=== PATIENT | male | born 1955 | race African-American/Black ===

== ENCOUNTER 2019-07-29 00:56 | Inpatient (IN) | payer SELFPAY ==
[~2019-07-29] VITALS: Ht 177.8 cm; Wt 112.7 kg
[2019-07-29] VITALS (9 sets, daily range): BP systolic 130–204; BP diastolic 87–119
--- NOTE | 2019-07-29 01:04 | Emergency Room Report ---
History of Present Illness General Chief Complaint: Dizziness Source: Patient Present Illness HPI This is a 63-year-old male with history of high blood pressure and CAD with 2 stents. He presents with chief complaint of dizziness and high blood pressure. He has been off of his medication since March when he was laid off of his job. He lost his insurance so has not seen a doctor since then. He presents with chief complaint of headache and dizziness. He said he felt off balance. Said that his blood pressure was elevated. He called 911 tonight. He denies any focal deficit. No slurred speech. No chest pain. No shortness of breath. Nothing made it better. Nothing made it worse. He took aspirin yesterday. He said symptoms been ongoing for the last 2 days. Allergies: Coded Allergies: No Known Allergies (Unverified , 07/29/19) COVID-19 Screening Contact w/high risk pt: No Recent Travel to affected area: No Experienced COVID-19 symptoms?: No Patient History Past Medical History: see triage record, old chart reviewed, HTN, CAD Past Surgical History: other Pertinent Family History: none Social History: Denies: smoking Immunizations: other Reviewed Nursing Documentation: PMH: Agreed; PSxH: Agreed Nursing Documentation-PMH Hx Cardiac Problems: Yes - stent Hx Hypertension: Yes Review of Systems Eye: Denies: eye pain, blurred vision ENT: Denies: ear pain, nose congestion, throat swelling Respiratory: Denies: cough, shortness of breath Cardiovascular: Denies: chest pain, palpitations Gastrointestinal: Denies: abdominal pain, diarrhea, nausea, vomiting Musculoskeletal: Denies: back pain, joint pain Skin: Denies: rash Neurological: Reports: dizziness; Denies: headache, numbness Endocrine: Denies: increased thirst, increased urine Hematologic/Lymphatic: Denies: easy bruising All Other Systems: negative except mentioned in HPI Physical Exam Vital Signs Date Time Temp Pulse Resp B/P (MAP) Pulse Ox O2 Delivery O2 Flow Rate FiO2 07/29/19 00:44 99.0 93 16 218/126 (156) 100 Room Air Vitals with high blood pressure Sp02 EP Interpretation: reviewed, normal General Appearance: well appearing, no apparent distress, alert Head: normocephalic, atraumatic Eyes: bilateral eye PERRL, bilateral eye EOMI ENT: hearing grossly normal, normal pharynx Neck: full range of motion, supple, no meningismus Respiratory: chest non-tender, lungs clear, normal breath sounds Cardiovascular #1: regular rate, rhythm, no murmur Gastrointestinal: normal bowel sounds, non tender, no mass, no organomegaly, no bruit, non-distended Musculoskeletal: back normal, normal range of motion, gait/station normal Psychiatric: mood/affect normal Medical Decision Making Diagnostic Impression: Primary Impression: Hypertensive encephalopathy Additional Impressions: CKD (chronic kidney disease) Qualified Codes: N18.9 - Chronic kidney disease, unspecified ACS (acute coronary syndrome) ER Course This patient presents with dizziness and blood pressure was very high. CT scan is negative for any acute bleed or CVA. Aspirin given here. Blood pressure slowly reduced. Troponin is intermediate. Aspirin given. No evidence of PE, dissection, CHF. I discussed the case with Dr. Quinn who will admit for Dr. Saurav garcia. EKG Diagnostic Results Rate: normal Rhythm: NSR ST Segments: other - LVH with NSST changes Rhythm Strip Diag. Results EP Interpretation: yes Rate: 82 Rhythm: NSR, no PVC's, no ectopy Chest X-Ray Diagnostic Results Chest X-Ray Diagnostic Results : Chest X-Ray Ordered: Yes # of Views/Limited/Complete: 1 View Indication: Chest Pain EP Interpretation: Yes Interpretation: no consolidation, no effusion, no pneumothorax, other - Cardiomegaly Impression: No acute disease Electronically Signed by: Robert Borden MD CT/MRI/US Diagnostic Results CT/MRI/US Diagnostic Results : Imaging Test Ordered: CT head Impression Negative per radiologist Last Vital Signs Date Time Temp Pulse Resp B/P (MAP) Pulse Ox O2 Delivery O2 Flow Rate FiO2 07/29/19 00:44 99.0 93 16 218/126 (156) 100 Room Air Status: improved Disposition: ADMITTED INPATIENT Condition: Serious Robert Borden MD Jul 29, 2019 01:04
[2019-07-29 01:21] LABS: BASOPHILS % (AUTO) 2.4 % (0.0-2.0); EOSINOPHILS % (AUTO) 2.2 % (0.0-3.0); HEMATOCRIT 46.8 % (42.0-52.0); HEMOGLOBIN 16.5 G/DL (14.2-18.0); LYMPHOCYTES % (AUTO) 32.9 % (20.0-45.0); MEAN CORPUSCULAR VOLUME 86 FL (80-99); MONOCYTES % (AUTO) 9.2 % (1.0-10.0); NEUTROPHILS % (AUTO) 53.3 % (45.0-75.0); PLATELET COUNT 275 K/UL (150-450); RED BLOOD COUNT 5.42 M/UL (4.70-6.10); RED CELL DISTRIBUTION WIDTH 11.7 % (11.6-14.8); WHITE BLOOD COUNT 6.5 K/UL (4.8-10.8)
[2019-07-29 01:34] LABS: ANION GAP 12 mmol/L (5-15); BLOOD UREA NITROGEN 19 mg/dL (7-18); CALCIUM 8.9 MG/DL (8.5-10.1); CARBON DIOXIDE 24 MMOL/L (21-32); CHLORIDE 107 MMOL/L (98-107); CREATININE 1.4 MG/DL (0.55-1.30); POTASSIUM 3.6 MMOL/L (3.5-5.1); SODIUM 143 MMOL/L (136-145)
[2019-07-29 01:57] LABS: APPEARANCE,URINE CLEAR; COLOR,URINE PALE YELLOW; PROTEIN,URINE 2+ (NEGATIVE)
[2019-07-29 01:58] LABS: BILIRUBIN, URINE NEGATIVE (NEGATIVE); GLUCOSE, URINE (UA) NEGATIVE (NEGATIVE); KETONES,URINE NEGATIVE (NEGATIVE); LEUKOCYTE ESTERASE ,URINE NEGATIVE (NEGATIVE); NITRITE,URINE NEGATIVE (NEGATIVE); UROBILINOGEN,URINE NORMAL MG/DL (0.0-1.0)
--- NOTE | 2019-07-29 02:10 | Diagnostic Imaging Report ---
EXAM: CT Head Without Intravenous Contrast CLINICAL HISTORY: DIZZY TECHNIQUE: Axial computed tomography images of the head/brain without intravenous contrast. CTDI is 53 mGy and DLP is 1179 mGy-cm. One or more of the following dose reduction techniques were used: automated exposure control, adjustment of the mA and/or kV according to patient size, use of iterative reconstruction technique. COMPARISON: No relevant prior studies available. FINDINGS: Brain: There is chronic small vessel ischemic disease. No hemorrhage. Ventricles: Unremarkable. No ventriculomegaly. Bones/joints: Unremarkable. No acute fracture. Soft tissues: Unremarkable. Sinuses: Unremarkable as visualized. No acute sinusitis. Mastoid air cells: Unremarkable as visualized. No mastoid effusion. IMPRESSION: No acute intracranial pathology.
--- NOTE | 2019-07-29 02:21 | Diagnostic Imaging Report ---
EXAM: XR Chest, 1 View CLINICAL HISTORY: CP TECHNIQUE: Frontal view of the chest. COMPARISON: No relevant prior studies available. FINDINGS: Lungs: Unremarkable. No consolidation. Pleural space: Unremarkable. No pneumothorax. Heart: Heart size is prominent. Mediastinum: Unremarkable. Bones/joints: Unremarkable. IMPRESSION: No radiographic evidence of acute cardiopulmonary disease.
[2019-07-29] MEDS ORDERED: Acetaminophen 650 MG SUPP RECTAL PRN (02:45)
[2019-07-29] MEDS ORDERED: DiphenhydrAMINE 25mg Tab ORAL PRN (02:45)
--- NOTE | 2019-07-29 03:06 | History and Physical ---
History of Present Illness General Date patient seen: Jul 29, 2019 Reason for Hospitalization: DizzinessHypertensive urgency Present Illness HPI Mr. Garcia is a 63 YO gentleman with essential HTN, HLD, CAD x /p 2 stents (2019), obesity presenting with dizziness. Patient mentions that at approximately 12:00 A.M while laying supine on his bed, he felt sudden onset of chest tightness and dizziness. As his symptoms did not subside, he called the paramedics. He denies any syncopal event, SOB, nausea, vomiting, or diaphoresis. Patient mentions that since March 2019, after getting laid off from his job, he has not been able to afford his home mediations and therefore has not been taking any of his home medications. He does not recall the name of his home medications. On arrival to the ED, patient's vitals were significant for BP: 204/119. The BMP showed Cr-: 1.4 and UA positive for 2+ proteinuria. The CTH and CXR were unrevealing. Patient is being admitted for further observation and medical management. Allergies: Coded Allergies: No Known Allergies (Unverified , 07/29/19) COVID-19 Screening Contact w/high risk pt: No Recent Travel to affected area: No Experienced COVID-19 symptoms?: No Patient History Healthcare decision maker Resuscitation status Advanced Directive on File Review of Systems Constitutional: Reports: no symptoms Eye: Reports: no symptoms, other - dizziness ENT: Reports: no symptoms Respiratory: Reports: other - chest tightness Cardiovascular: Reports: no symptoms, see HPI, chest pain, edema, palpitations , syncope, PND, other Gastrointestinal: Reports: no symptoms, see HPI, abdominal pain, constipation, diarrhea, nausea, vomiting, melena, hematemesis, other Genitourinary: Reports: no symptoms, see HPI, discharge, dysuria, frequency, hematuria, pain, retention, incontinence, urgency, vag bleed/dc, other Musculoskeletal: Reports: no symptoms, see HPI, back pain, gout, joint pain, joint swelling, muscle pain, muscle stiffness, other Skin: Reports: no symptoms, see HPI, rash, change in color, change in hair/ nails, dryness, lesions, other Psychiatric: Reports: no symptoms, see HPI, prior hx, anxiety, depressed feelings, emotional problems, SI, HI, hallucinations, other Neurological: Reports: no symptoms, see HPI, headache, numbness, paresthesia, seizure, tingling, tremors, focal weakness, syncope, dizziness, other Endocrine: Reports: no symptoms, see HPI, excessive sweating, flushing, intolerance to temperature, increased thirst, increased urine, unexplained weight loss, other Hematologic/Lymphatic: Reports: no symptoms, see HPI, anemia, blood clots, easy bleeding, easy bruising, swollen glands, diathesis, other Physical Exam General Appearance: obese Lines, tubes and drains: peripheral HEENT: normocephalic, atraumatic, anicteric Neck: non-tender, normal inspection, abnormal alignment Respiratory/Chest: lungs clear, normal breath sounds, no respiratory distress, no accessory muscle use Cardiovascular/Chest: normal peripheral pulses, normal rate, regular rhythm, regularly irregular, no gallop/murmur, no JVD Abdomen: non tender, soft, no organomegaly, no mass Extremities: normal range of motion Skin Exam: normal pigmentation 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 Last 24 Hour Vital Signs Date Time Temp Pulse Resp B/P (MAP) Pulse Ox O2 Delivery O2 Flow Rate FiO2 07/29/19 02:40 113 16 176/87 99 Room Air 07/29/19 02:09 198/112 07/29/19 02:08 89 198/112 07/29/19 02:00 91 16 198/112 98 Room Air 98 07/29/19 01:08 205/144 07/29/19 01:00 91 16 Room Air 98 07/29/19 00:58 98.9 91 16 204/119 98 Room Air 07/29/19 00:44 99.0 93 16 218/126 (156) 100 Room Air Laboratory Tests Test 07/29/19 01:05 White Blood Count 6.5 K/UL (4.8-10.8) Red Blood Count 5.42 M/UL (4.70-6.10) Hemoglobin 16.5 G/DL (14.2-18.0) Hematocrit 46.8 % (42.0-52.0) Mean Corpuscular Volume 86 FL (80-99) Mean Corpuscular Hemoglobin 30.5 PG (27.0-31.0) Mean Corpuscular Hemoglobin Concent 35.3 G/DL (32.0-36.0) Red Cell Distribution Width 11.7 % (11.6-14.8) Platelet Count 275 K/UL (150-450) Mean Platelet Volume 6.9 FL (6.5-10.1) Neutrophils (%) (Auto) 53.3 % (45.0-75.0) Lymphocytes (%) (Auto) 32.9 % (20.0-45.0) Monocytes (%) (Auto) 9.2 % (1.0-10.0) Eosinophils (%) (Auto) 2.2 % (0.0-3.0) Basophils (%) (Auto) 2.4 % (0.0-2.0) H Urine Color Pale yellow Urine Appearance Clear Urine pH 6.0 (4.5-8.0) Urine Specific [place] 1.020 (1.005-1.035) Urine Protein 2+ (NEGATIVE) H Urine Glucose (UA) Negative (NEGATIVE) Urine Ketones Negative (NEGATIVE) Urine Blood 2+ (NEGATIVE) H Urine Nitrite Negative (NEGATIVE) Urine Bilirubin Negative (NEGATIVE) Urine Urobilinogen Normal MG/DL (0.0-1.0) Urine Leukocyte Esterase Negative (NEGATIVE) Urine RBC 0 /HPF (0 - 0) Urine WBC 0 /HPF (0 - 0) Urine Squamous Epithelial Cells Occasional /LPF Urine Transitional Epithelial Cells None /LPF (NONE) Urine Renal Epithelial Cells None /LPF (NONE) Urine Bacteria None /HPF (NONE) Sodium Level 143 MMOL/L (136-145) Potassium Level 3.6 MMOL/L (3.5-5.1) Chloride Level 107 MMOL/L (98-107) Carbon Dioxide Level 24 MMOL/L (21-32) Anion Gap 12 mmol/L (5-15) Blood Urea Nitrogen 19 mg/dL (7-18) H Creatinine 1.4 MG/DL (0.55-1.30) H Estimat Glomerular Filtration Rate 51.5 mL/min (>60) Glucose Level 108 MG/DL (74-106) H Calcium Level 8.9 MG/DL (8.5-10.1) Troponin I 0.136 ng/mL (0.000-0.056) Urine Opiates Screen Negative (NEGATIVE) Urine Barbiturates Screen Negative (NEGATIVE) Phencyclidine (PCP) Screen Negative (NEGATIVE) Urine Amphetamines Screen Negative (NEGATIVE) Urine Benzodiazepines Screen Negative (NEGATIVE) Urine Cocaine Screen Negative (NEGATIVE) Urine Marijuana (THC) Screen Negative (NEGATIVE) Height (Feet): 5 Height (Inches): 10.00 Weight (Pounds): 250 Medications Current Medications Medications (Trade) Dose Ordered Sig/Aaron Route PRN Reason Start Time Stop Time Status Last Admin Dose Admin Acetaminophen (Tylenol) 650 mg Q4H PRN RECTAL Temp >100.5 07/29/19 02:45 08/28/19 02:44 UNV Amlodipine Besylate (Norvasc) 5 mg Q24HRS ONCE ORAL 07/29/19 02:45 07/29/19 02:46 UNV Aspirin (Ecotrin) 81 mg DAILY ORAL 07/29/19 09:00 09/12/19 08:59 UNV Atorvastatin Calcium (Lipitor) 40 mg Q24HRS ONCE ORAL 07/29/19 02:45 07/29/19 02:46 UNV Dextrose (Dextrose 50%) 25 ml Q30M PRN IV Hypoglycemia 07/29/19 02:45 10/27/19 02:44 UNV Dextrose (Dextrose 50%) 50 ml Q30M PRN IV Hypoglycemia 07/29/19 02:45 10/27/19 02:44 UNV Diphenhydramine HCl (Benadryl) 25 mg Q6H PRN ORAL Itching/Pruritis 07/29/19 02:45 08/28/19 02:44 UNV Heparin Sodium (Porcine) (Heparin 5000 units/ml) 5,000 units EVERY 12 HOURS SUBQ 07/29/19 09:00 09/12/19 08:59 UNV Hydrochlorothiazide (Hydrodiuril) 25 mg Q24HRS ONCE ORAL 07/29/19 02:45 07/29/19 02:46 UNV Assessment/Plan Assessment/Plan: 63 YO M with HTN, HLD ,atherosclerotic CAD s/p PCI with 2 stents (2019), CKD, medication non-compliance presenting with lightheadedness. Vitals signs in the ED significant for BP: 204/119 and UA suggestive or proteinuria. Patient is being admitted for further observation and medical management. #Hypertensive Urgency #Medication non-compliance 2// cost #History of primary hypertension -s/p IV hydralazine in the ED with appropriate lowering of the B.P -Continuous cardiac monitoring. -Normal CTH and CXR. -Start Amlodipine 5 MG PO QD. -Start HCTZ 25 MG PO QD. -Goal BP <140/80 mmHg -Continue to monitor renal function while on HCTZ. #HLD #CAD s/p PCI with 2 stents (2018) #Elevated Troponin -Serum Trop: 0.13; Continue to trend -EKG: no signs of acute ischemia -Start Atorvastatin 40 MG PO QD. -Start ASA 81 MG PO QD. -Lipid panel ordered. -Hemoglobin A1c ordered. #Chronic Kidney Disease #Hypertensive nephropathy -Serum Cr-:; baseline unknown. -Continue to monitor. -Consider Nephrology consult. #Medication non-compliance -2/2 to cost. -Patient currently unemployed. - consult prior to discharge to provide outpatient resources. I spent 70 minutes on this patient's case, and >50% was dedicated to counseling and/or care coordination. Zac Quinn M.D. Jul 29, 2019 03:06
[2019-07-29] MEDS: TraZODone 50mg tab ORAL PRN (07:34)
[2019-07-29] MEDS: Flonase Nasal Inhaler 16gm NASAL SCH ×2 (07:34→17:31)
[2019-07-29] MEDS: Aspirin EC 81mg tab ORAL SCH (08:25)
[2019-07-29] MEDS: hydroCHLOROthiazide 25mg cap ORAL SCH (08:25)
[2019-07-29] MEDS: Atorvastatin 20mg tab ORAL SCH (08:25)
[2019-07-29] MEDS: Heparin 5000 units/ml inj SUBQ SCH ×2 (08:28→20:58)
--- NOTE | 2019-07-29 09:28 | Consultation ---
History of Present Illness General Chief Complaint: Dizziness Present Illness HPI Mr. Garcia is a 63 YO gentleman with essential HTN, HLD, CAD x /p 2 stents (2019), obesity presenting with dizziness. Patient mentions that at approximately 12:00 A.M while laying supine on his bed, he felt sudden onset of chest tightness and dizziness. As his symptoms did not subside, he called the paramedics. He denies any syncopal event, SOB, nausea, vomiting, or diaphoresis. Patient mentions that since March 2019, after getting laid off from his job, he has not been able to afford his home mediations and therefore has not been taking any of his home medications. He does not recall the name of his home medications. On arrival to the ED, patient's vitals were significant for BP: 204/119. The BMP showed Cr-: 1.4 and UA positive for 2+ proteinuria. The CTH and CXR were unrevealing. Patient is being admitted for further observation and medical management. Allergies: Coded Allergies: No Known Allergies (Unverified , 07/29/19) Patient History Healthcare decision maker Resuscitation status Full Code Advanced Directive on File Review of Systems All Other Systems: negative except mentioned in HPI Physical Exam General Appearance: WD/WN, no apparent distress Lines, tubes and drains: peripheral HEENT: normocephalic, atraumatic Neck: non-tender Respiratory/Chest: chest wall non-tender, lungs clear, normal breath sounds Abdomen: non tender, soft Neurologic: alert, oriented x 3 Last 24 Hour Vital Signs Date Time Temp Pulse Resp B/P (MAP) Pulse Ox O2 Delivery O2 Flow Rate FiO2 07/29/19 08:00 98.0 99 18 149/95 (113) 98 07/29/19 06:39 Room Air 07/29/19 04:00 97.8 108 18 150/90 (110) 99 07/29/19 04:00 107 07/29/19 03:30 98.7 105 18 153/99 98 Room Air 98 07/29/19 03:26 98.7 105 18 153/99 98 Room Air 98 07/29/19 02:40 113 16 176/87 99 Room Air 07/29/19 02:09 198/112 07/29/19 02:08 89 198/112 07/29/19 02:00 91 16 198/112 98 Room Air 98 07/29/19 01:08 205/144 07/29/19 01:00 91 16 Room Air 98 07/29/19 00:58 98.9 91 16 204/119 98 Room Air 07/29/19 00:44 99.0 93 16 218/126 (156) 100 Room Air Intake and Output 07/28/19 07/29/19 19:00 07:00 Intake Total 200 ml Output Total 300 ml Balance -100 ml Intake Oral 200 ml Output Urine Total 300 ml # Voids 2 Laboratory Tests Test 07/29/19 01:05 White Blood Count 6.5 K/UL (4.8-10.8) Red Blood Count 5.42 M/UL (4.70-6.10) Hemoglobin 16.5 G/DL (14.2-18.0) Hematocrit 46.8 % (42.0-52.0) Mean Corpuscular Volume 86 FL (80-99) Mean Corpuscular Hemoglobin 30.5 PG (27.0-31.0) Mean Corpuscular Hemoglobin Concent 35.3 G/DL (32.0-36.0) Red Cell Distribution Width 11.7 % (11.6-14.8) Platelet Count 275 K/UL (150-450) Mean Platelet Volume 6.9 FL (6.5-10.1) Neutrophils (%) (Auto) 53.3 % (45.0-75.0) Lymphocytes (%) (Auto) 32.9 % (20.0-45.0) Monocytes (%) (Auto) 9.2 % (1.0-10.0) Eosinophils (%) (Auto) 2.2 % (0.0-3.0) Basophils (%) (Auto) 2.4 % (0.0-2.0) H Urine Color Pale yellow Urine Appearance Clear Urine pH 6.0 (4.5-8.0) Urine Specific [place] 1.020 (1.005-1.035) Urine Protein 2+ (NEGATIVE) H Urine Glucose (UA) Negative (NEGATIVE) Urine Ketones Negative (NEGATIVE) Urine Blood 2+ (NEGATIVE) H Urine Nitrite Negative (NEGATIVE) Urine Bilirubin Negative (NEGATIVE) Urine Urobilinogen Normal MG/DL (0.0-1.0) Urine Leukocyte Esterase Negative (NEGATIVE) Urine RBC 0 /HPF (0 - 0) Urine WBC 0 /HPF (0 - 0) Urine Squamous Epithelial Cells Occasional /LPF Urine Transitional Epithelial Cells None /LPF (NONE) Urine Renal Epithelial Cells None /LPF (NONE) Urine Bacteria None /HPF (NONE) Sodium Level 143 MMOL/L (136-145) Potassium Level 3.6 MMOL/L (3.5-5.1) Chloride Level 107 MMOL/L (98-107) Carbon Dioxide Level 24 MMOL/L (21-32) Anion Gap 12 mmol/L (5-15) Blood Urea Nitrogen 19 mg/dL (7-18) H Creatinine 1.4 MG/DL (0.55-1.30) H Estimat Glomerular Filtration Rate 51.5 mL/min (>60) Glucose Level 108 MG/DL (74-106) H Calcium Level 8.9 MG/DL (8.5-10.1) Troponin I 0.136 ng/mL (0.000-0.056) Urine Opiates Screen Negative (NEGATIVE) Urine Barbiturates Screen Negative (NEGATIVE) Phencyclidine (PCP) Screen Negative (NEGATIVE) Urine Amphetamines Screen Negative (NEGATIVE) Urine Benzodiazepines Screen Negative (NEGATIVE) Urine Cocaine Screen Negative (NEGATIVE) Urine Marijuana (THC) Screen Negative (NEGATIVE) Height (Feet): 5 Height (Inches): 10.00 Weight (Pounds): 250 Medications Current Medications Medications (Trade) Dose Ordered Sig/Aaron Route PRN Reason Start Time Stop Time Status Last Admin Dose Admin Acetaminophen (Tylenol) 650 mg Q4H PRN RECTAL Temp >100.5 07/29/19 02:45 08/28/19 02:44 Amlodipine Besylate (Norvasc) 5 mg DAILY ORAL 07/30/19 09:00 08/29/19 08:59 Aspirin (Ecotrin) 81 mg DAILY ORAL 07/29/19 09:00 09/12/19 08:59 07/29/19 08:25 Atorvastatin Calcium (Lipitor) 40 mg DAILY ORAL 07/29/19 09:00 10/27/19 08:59 07/29/19 08:25 Clonidine HCl (Catapres Tab) 0.1 mg Q12H PRN ORAL For High Blood Pressure 07/29/19 04:15 10/27/19 04:14 Dextrose (Dextrose 50%) 25 ml Q30M PRN IV Hypoglycemia 07/29/19 02:45 10/27/19 02:44 Dextrose (Dextrose 50%) 50 ml Q30M PRN IV Hypoglycemia 07/29/19 02:45 10/27/19 02:44 Diphenhydramine HCl (Benadryl) 25 mg Q6H PRN ORAL Itching/Pruritis 07/29/19 02:45 08/28/19 02:44 Fluticasone Propionate (Flonase) 1 spray TWICE A DAY NASAL 07/29/19 05:00 08/28/19 04:59 07/29/19 07:34 Heparin Sodium (Porcine) (Heparin 5000 units/ml) 5,000 units EVERY 12 HOURS SUBQ 07/29/19 09:00 09/12/19 08:59 07/29/19 08:28 Hydrochlorothiazide (Hydrodiuril) 25 mg DAILY ORAL 07/29/19 09:00 08/28/19 08:59 07/29/19 08:25 Trazodone HCl (Desyrel) 50 mg DAILY PRN ORAL Insomnia 07/29/19 06:45 08/28/19 06:44 07/29/19 07:34 Assessment/Plan Diagnosis [place] I: #hypertensive urgency #Elevated trop #proteinuria #poorly controlled HTN #HLD - check UTP/cr - add coreg 6.25mg daily - continue amlodipine 5mg daily - continue hctz 25mg daily - check renal Us with doppler - check kassie:renin ratio - cardiology eval - 2d echo - asa 81 daily - lipitor 40mg daily Nena Celaya M.D. Jul 29, 2019 09:28
--- NOTE | 2019-07-29 20:18 | Consultation ---
History of Present Illness General Date patient seen: Jul 29, 2019 Chief Complaint: Dizziness Reason for Consultation: dizziness Present Illness HPI 63 YO gentleman with essential HTN, HLD, CAD x/p 2 stents (2019 ), obesity presenting with dizziness. Patient mentions that at approximately 12: 00 A.M while laying supine on his bed, he felt sudden onset of chest tightness and dizziness. As his symptoms did not subside, he called the paramedics. He denies any syncopal event, SOB, nausea, vomiting, or diaphoresis. Patient mentions that since March 2019, after getting laid off from his job, he has not been able to afford his home mediations and therefore has not been taking any of his home medications. He does not recall the name of his home medications. On arrival to the ED, patient's vitals were significant for BP: 204/119. The BMP showed Cr-: 1.4 and UA positive for 2+ proteinuria. Allergies: Coded Allergies: No Known Allergies (Unverified , 07/29/19) Medication History Scheduled Amlodipine Besylate (Norvasc), 10 MG ORAL DAILY Aspirin Ec* (Aspirin Ec*), 81 MG ORAL DAILY Atorvastatin Calcium* (Lipitor*), 40 MG ORAL DAILY Hydralazine HCl (Hydralazine HCl), 100 MG ORAL BID Hydrochlorothiazide (Hydrochlorothiazide), 12.5 MG ORAL DAILY Patient History Healthcare decision maker Resuscitation status Full Code Advanced Directive on File Physical Exam General Appearance: alert HEENT: normocephalic Neck: non-tender Respiratory/Chest: chest wall non-tender Cardiovascular/Chest: normal peripheral pulses Abdomen: normal bowel sounds 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 II-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 grossly normal, no motor/sensory deficits Last 24 Hour Vital Signs Date Time Temp Pulse Resp B/P (MAP) Pulse Ox O2 Delivery O2 Flow Rate FiO2 07/29/19 16:00 79 07/29/19 16:00 98.1 89 18 130/88 (102) 100 07/29/19 12:00 98.0 95 18 139/104 (116) 97 07/29/19 12:00 102 07/29/19 09:00 Room Air 07/29/19 08:00 98.0 99 18 149/95 (113) 98 07/29/19 08:00 96 07/29/19 06:39 Room Air 07/29/19 04:00 97.8 108 18 150/90 (110) 99 07/29/19 04:00 107 07/29/19 03:30 98.7 105 18 153/99 98 Room Air 98 07/29/19 03:26 98.7 105 18 153/99 98 Room Air 98 07/29/19 02:40 113 16 176/87 99 Room Air 07/29/19 02:09 198/112 07/29/19 02:08 89 198/112 07/29/19 02:00 91 16 198/112 98 Room Air 98 07/29/19 01:08 205/144 07/29/19 01:00 91 16 Room Air 98 07/29/19 00:58 98.9 91 16 204/119 98 Room Air 07/29/19 00:44 99.0 93 16 218/126 (156) 100 Room Air Intake and Output 07/28/19 07/29/19 19:00 07:00 Intake Total 200 ml Output Total 300 ml Balance -100 ml Intake Oral 200 ml Output Urine Total 300 ml # Voids 2 Laboratory Tests Test 07/29/19 01:05 07/29/19 11:40 White Blood Count 6.5 K/UL (4.8-10.8) Red Blood Count 5.42 M/UL (4.70-6.10) Hemoglobin 16.5 G/DL (14.2-18.0) Hematocrit 46.8 % (42.0-52.0) Mean Corpuscular Volume 86 FL (80-99) Mean Corpuscular Hemoglobin 30.5 PG (27.0-31.0) Mean Corpuscular Hemoglobin Concent 35.3 G/DL (32.0-36.0) Red Cell Distribution Width 11.7 % (11.6-14.8) Platelet Count 275 K/UL (150-450) Mean Platelet Volume 6.9 FL (6.5-10.1) Neutrophils (%) (Auto) 53.3 % (45.0-75.0) Lymphocytes (%) (Auto) 32.9 % (20.0-45.0) Monocytes (%) (Auto) 9.2 % (1.0-10.0) Eosinophils (%) (Auto) 2.2 % (0.0-3.0) Basophils (%) (Auto) 2.4 % (0.0-2.0) H Urine Color Pale yellow Urine Appearance Clear Urine pH 6.0 (4.5-8.0) Urine Specific [place] 1.020 (1.005-1.035) Urine Protein 2+ (NEGATIVE) H Urine Glucose (UA) Negative (NEGATIVE) Urine Ketones Negative (NEGATIVE) Urine Blood 2+ (NEGATIVE) H Urine Nitrite Negative (NEGATIVE) Urine Bilirubin Negative (NEGATIVE) Urine Urobilinogen Normal MG/DL (0.0-1.0) Urine Leukocyte Esterase Negative (NEGATIVE) Urine RBC 0 /HPF (0 - 0) Urine WBC 0 /HPF (0 - 0) Urine Squamous Epithelial Cells Occasional /LPF Urine Transitional Epithelial Cells None /LPF (NONE) Urine Renal Epithelial Cells None /LPF (NONE) Urine Bacteria None /HPF (NONE) Sodium Level 143 MMOL/L (136-145) Potassium Level 3.6 MMOL/L (3.5-5.1) Chloride Level 107 MMOL/L (98-107) Carbon Dioxide Level 24 MMOL/L (21-32) Anion Gap 12 mmol/L (5-15) Blood Urea Nitrogen 19 mg/dL (7-18) H Creatinine 1.4 MG/DL (0.55-1.30) H Estimat Glomerular Filtration Rate 51.5 mL/min (>60) Glucose Level 108 MG/DL (74-106) H Calcium Level 8.9 MG/DL (8.5-10.1) Troponin I 0.136 ng/mL (0.000-0.056) 0.094 ng/mL (0.000-0.056) Urine Opiates Screen Negative (NEGATIVE) Urine Barbiturates Screen Negative (NEGATIVE) Phencyclidine (PCP) Screen Negative (NEGATIVE) Urine Amphetamines Screen Negative (NEGATIVE) Urine Benzodiazepines Screen Negative (NEGATIVE) Urine Cocaine Screen Negative (NEGATIVE) Urine Marijuana (THC) Screen Negative (NEGATIVE) Renin Pending Aldosterone Pending Height (Feet): 5 Height (Inches): 10.00 Weight (Pounds): 250 Medications Current Medications Medications (Trade) Dose Ordered Sig/Aaron Route PRN Reason Start Time Stop Time Status Last Admin Dose Admin Acetaminophen (Tylenol) 650 mg Q4H PRN RECTAL Temp >100.5 07/29/19 02:45 08/28/19 02:44 Amlodipine Besylate (Norvasc) 5 mg DAILY ORAL 07/30/19 09:00 08/29/19 08:59 Aspirin (Ecotrin) 81 mg DAILY ORAL 07/29/19 09:00 09/12/19 08:59 07/29/19 08:25 Atorvastatin Calcium (Lipitor) 40 mg DAILY ORAL 07/29/19 09:00 10/27/19 08:59 07/29/19 08:25 Carvedilol (Coreg) 6.25 mg EVERY 12 HOURS ORAL 07/29/19 21:00 08/28/19 20:59 Clonidine HCl (Catapres Tab) 0.1 mg Q12H PRN ORAL For High Blood Pressure 07/29/19 04:15 10/27/19 04:14 Dextrose (Dextrose 50%) 25 ml Q30M PRN IV Hypoglycemia 07/29/19 02:45 10/27/19 02:44 Dextrose (Dextrose 50%) 50 ml Q30M PRN IV Hypoglycemia 07/29/19 02:45 10/27/19 02:44 Diphenhydramine HCl (Benadryl) 25 mg Q6H PRN ORAL Itching/Pruritis 07/29/19 02:45 08/28/19 02:44 07/29/19 16:46 Fluticasone Propionate (Flonase) 1 spray TWICE A DAY NASAL 07/29/19 05:00 08/28/19 04:59 07/29/19 17:31 Heparin Sodium (Porcine) (Heparin 5000 units/ml) 5,000 units EVERY 12 HOURS SUBQ 07/29/19 09:00 09/12/19 08:59 07/29/19 08:28 Hydrochlorothiazide (Hydrodiuril) 25 mg DAILY ORAL 07/29/19 09:00 08/28/19 08:59 07/29/19 08:25 Trazodone HCl (Desyrel) 50 mg DAILY PRN ORAL Insomnia 07/29/19 06:45 08/28/19 06:44 07/29/19 07:34 Assessment/Plan Problem List: (1) Hypertensive encephalopathy ICD Codes: I67.4 - Hypertensive encephalopathy SNOMED: 35177185 (2) ACS (acute coronary syndrome) ICD Codes: I24.9 - Acute ischemic heart disease, unspecified SNOMED: 701524262 (3) CKD (chronic kidney disease) ICD Codes: N18.9 - Chronic kidney disease, unspecified SNOMED: 674624142 Qualifiers: Qualified Codes: N18.9 - Chronic kidney disease, unspecified Assessment/Plan: dizziness likely 2/2 hypertensive encephalopathy ok to drop bp < 140/90 non focal neuro exam defer mri brain pt ot Liam Castaneda MD Jul 29, 2019 20:18
[2019-07-29] MEDS: Carvedilol 6.25mg Tab ORAL SCH (20:56)
--- NOTE | 2019-07-29 22:31 | Consultation ---
History of Present Illness General Date patient seen: Jul 29, 2019 Time patient seen: 20:14 Chief Complaint: Dizziness Reason for Consultation: dizziness Present Illness HPI Mr. Garcia is a 63 YO gentleman with essential HTN, HLD, CAD x /p 2 stents (2018), obesity presenting with dizziness. Patient mentions that at approximately 12:00 A.M while laying supine on his bed, he felt sudden onset of chest tightness and dizziness. As his symptoms did not subside, he called the paramedics. He denies any syncopal event, SOB, nausea, vomiting, or diaphoresis. Patient mentions that since March 2019, after getting laid off from his job, he has not been able to afford his home mediations and therefore has not been taking any of his home medications. He does not recall the name of his home medications. On arrival to the ED, patient's vitals were significant for BP: 204/119. The BMP showed Cr-: 1.4 and UA positive for 2+ proteinuria. The CTH and CXR were unrevealing. Allergies: Coded Allergies: No Known Allergies (Unverified , 07/29/19) Patient History Healthcare decision maker Resuscitation status Full Code Advanced Directive on File Review of Systems Constitutional: Reports: no symptoms Eye: Reports: no symptoms ENT: Reports: no symptoms Respiratory: Reports: no symptoms Cardiovascular: Reports: chest pain Gastrointestinal: Reports: no symptoms Genitourinary: Reports: no symptoms Musculoskeletal: Reports: no symptoms Skin: Reports: no symptoms Psychiatric: Reports: no symptoms Neurological: Reports: no symptoms Endocrine: Reports: no symptoms Hematologic/Lymphatic: Reports: no symptoms Physical Exam General Appearance: no apparent distress, alert Lines, tubes and drains: peripheral HEENT: normocephalic, atraumatic, anicteric, mucous membranes moist, PERRL, EOMI, pharynx normal, supple, no JVD Neck: non-tender, normal alignment, supple, normal inspection Respiratory/Chest: chest wall non-tender, lungs clear, normal breath sounds Cardiovascular/Chest: normal peripheral pulses, normal rate, regular rhythm, regularly irregular, no gallop/murmur, no JVD Abdomen: normal bowel sounds, non tender, soft, no organomegaly, no mass Extremities: normal range of motion, non-tender, normal inspection, no calf tenderness, normal capillary refill, non-pitting Skin Exam: normal pigmentation, warm/dry, cyanotic 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, no motor/sensory deficits Last 24 Hour Vital Signs Date Time Temp Pulse Resp B/P (MAP) Pulse Ox O2 Delivery O2 Flow Rate FiO2 07/29/19 20:56 82 148/80 07/29/19 16:00 79 07/29/19 16:00 98.1 89 18 130/88 (102) 100 07/29/19 12:00 98.0 95 18 139/104 (116) 97 07/29/19 12:00 102 07/29/19 09:00 Room Air 07/29/19 08:00 98.0 99 18 149/95 (113) 98 07/29/19 08:00 96 07/29/19 06:39 Room Air 07/29/19 04:00 97.8 108 18 150/90 (110) 99 07/29/19 04:00 107 07/29/19 03:30 98.7 105 18 153/99 98 Room Air 98 07/29/19 03:26 98.7 105 18 153/99 98 Room Air 98 07/29/19 02:40 113 16 176/87 99 Room Air 07/29/19 02:09 198/112 07/29/19 02:08 89 198/112 07/29/19 02:00 91 16 198/112 98 Room Air 98 07/29/19 01:08 205/144 07/29/19 01:00 91 16 Room Air 98 07/29/19 00:58 98.9 91 16 204/119 98 Room Air 07/29/19 00:44 99.0 93 16 218/126 (156) 100 Room Air Intake and Output 07/28/19 07/29/19 19:00 07:00 Intake Total 200 ml Output Total 300 ml Balance -100 ml Intake Oral 200 ml Output Urine Total 300 ml # Voids 2 Laboratory Tests Test 07/29/19 01:05 07/29/19 11:40 07/29/19 20:30 White Blood Count 6.5 K/UL (4.8-10.8) Red Blood Count 5.42 M/UL (4.70-6.10) Hemoglobin 16.5 G/DL (14.2-18.0) Hematocrit 46.8 % (42.0-52.0) Mean Corpuscular Volume 86 FL (80-99) Mean Corpuscular Hemoglobin 30.5 PG (27.0-31.0) Mean Corpuscular Hemoglobin Concent 35.3 G/DL (32.0-36.0) Red Cell Distribution Width 11.7 % (11.6-14.8) Platelet Count 275 K/UL (150-450) Mean Platelet Volume 6.9 FL (6.5-10.1) Neutrophils (%) (Auto) 53.3 % (45.0-75.0) Lymphocytes (%) (Auto) 32.9 % (20.0-45.0) Monocytes (%) (Auto) 9.2 % (1.0-10.0) Eosinophils (%) (Auto) 2.2 % (0.0-3.0) Basophils (%) (Auto) 2.4 % (0.0-2.0) H Urine Color Pale yellow Urine Appearance Clear Urine pH 6.0 (4.5-8.0) Urine Specific [place] 1.020 (1.005-1.035) Urine Protein 2+ (NEGATIVE) H Urine Glucose (UA) Negative (NEGATIVE) Urine Ketones Negative (NEGATIVE) Urine Blood 2+ (NEGATIVE) H Urine Nitrite Negative (NEGATIVE) Urine Bilirubin Negative (NEGATIVE) Urine Urobilinogen Normal MG/DL (0.0-1.0) Urine Leukocyte Esterase Negative (NEGATIVE) Urine RBC 0 /HPF (0 - 0) Urine WBC 0 /HPF (0 - 0) Urine Squamous Epithelial Cells Occasional /LPF Urine Transitional Epithelial Cells None /LPF (NONE) Urine Renal Epithelial Cells None /LPF (NONE) Urine Bacteria None /HPF (NONE) Sodium Level 143 MMOL/L (136-145) Potassium Level 3.6 MMOL/L (3.5-5.1) Chloride Level 107 MMOL/L (98-107) Carbon Dioxide Level 24 MMOL/L (21-32) Anion Gap 12 mmol/L (5-15) Blood Urea Nitrogen 19 mg/dL (7-18) H Creatinine 1.4 MG/DL (0.55-1.30) H Estimat Glomerular Filtration Rate 51.5 mL/min (>60) Glucose Level 108 MG/DL (74-106) H Calcium Level 8.9 MG/DL (8.5-10.1) Troponin I 0.136 ng/mL (0.000-0.056) 0.094 ng/mL (0.000-0.056) Urine Opiates Screen Negative (NEGATIVE) Urine Barbiturates Screen Negative (NEGATIVE) Phencyclidine (PCP) Screen Negative (NEGATIVE) Urine Amphetamines Screen Negative (NEGATIVE) Urine Benzodiazepines Screen Negative (NEGATIVE) Urine Cocaine Screen Negative (NEGATIVE) Urine Marijuana (THC) Screen Negative (NEGATIVE) Renin Pending Aldosterone Pending Urine Random Total Protein 10 MG/DL (< 11.9) Urine Creatinine 215.2 MG/DL (30.0-125.0) H Height (Feet): 5 Height (Inches): 10.00 Weight (Pounds): 250 Medications Current Medications Medications (Trade) Dose Ordered Sig/Aaron Route PRN Reason Start Time Stop Time Status Last Admin Dose Admin Acetaminophen (Tylenol) 650 mg Q4H PRN RECTAL Temp >100.5 07/29/19 02:45 08/28/19 02:44 Amlodipine Besylate (Norvasc) 5 mg DAILY ORAL 07/30/19 09:00 08/29/19 08:59 Aspirin (Ecotrin) 81 mg DAILY ORAL 07/29/19 09:00 09/12/19 08:59 07/29/19 08:25 Atorvastatin Calcium (Lipitor) 40 mg DAILY ORAL 07/29/19 09:00 10/27/19 08:59 07/29/19 08:25 Carvedilol (Coreg) 6.25 mg EVERY 12 HOURS ORAL 07/29/19 21:00 08/28/19 20:59 07/29/19 20:56 Clonidine HCl (Catapres Tab) 0.1 mg Q12H PRN ORAL For High Blood Pressure 07/29/19 04:15 10/27/19 04:14 Dextrose (Dextrose 50%) 25 ml Q30M PRN IV Hypoglycemia 07/29/19 02:45 10/27/19 02:44 Dextrose (Dextrose 50%) 50 ml Q30M PRN IV Hypoglycemia 07/29/19 02:45 10/27/19 02:44 Diphenhydramine HCl (Benadryl) 25 mg Q6H PRN ORAL Itching/Pruritis 07/29/19 02:45 08/28/19 02:44 07/29/19 16:46 Fluticasone Propionate (Flonase) 1 spray TWICE A DAY NASAL 07/29/19 05:00 08/28/19 04:59 07/29/19 17:31 Heparin Sodium (Porcine) (Heparin 5000 units/ml) 5,000 units EVERY 12 HOURS SUBQ 07/29/19 09:00 09/12/19 08:59 07/29/19 20:58 Hydrochlorothiazide (Hydrodiuril) 25 mg DAILY ORAL 07/29/19 09:00 08/28/19 08:59 07/29/19 08:25 Trazodone HCl (Desyrel) 50 mg DAILY PRN ORAL Insomnia 07/29/19 06:45 08/28/19 06:44 07/29/19 07:34 Assessment/Plan Status: doing well, stable Assessment/Plan: ASSESSMENT Hypertensive urgency Elevated Troponin Medication non compliance CAD s/p PCI 2019 x2 CKD Chest pain PLAN Trend troponin - now trending and likely from elevated blood pressure Nitro prn chest pain Continue norvasc and HCTZ - monitor renal function Slowly reduce blood pressures DASH diet Hold heparin unless patient has refractory symptoms/EKG changes/rising troponin Continue lipitor No indication for cardiac cath or stress test at this time. Gustabo Ferrari MD Jul 29, 2019 22:31
[2019-07-30] VITALS: BP 145/94
[2019-07-30] MEDS: TraZODone 50mg tab ORAL PRN (00:52)
[2019-07-30 04:00] VITALS: BP 149/90
[2019-07-30 07:30] LABS: BASOPHILS % (AUTO) 1.8 % (0.0-2.0); EOSINOPHILS % (AUTO) 3.4 % (0.0-3.0); HEMATOCRIT 45.6 % (42.0-52.0); HEMOGLOBIN 15.8 G/DL (14.2-18.0); LYMPHOCYTES % (AUTO) 37.4 % (20.0-45.0); MEAN CORPUSCULAR VOLUME 89 FL (80-99); NEUTROPHILS % (AUTO) 47.5 % (45.0-75.0); PLATELET COUNT 277 K/UL (150-450); RED BLOOD COUNT 5.15 M/UL (4.70-6.10); RED CELL DISTRIBUTION WIDTH 12.2 % (11.6-14.8); WHITE BLOOD COUNT 5.2 K/UL (4.8-10.8)
--- NOTE | 2019-07-30 07:49 | General Progress Note ---
Assessment/Plan Status: doing well, stable Assessment/Plan: 63 YO M with HTN, HLD ,atherosclerotic CAD s/p PCI with 2 stents (2019), CKD, medication non-compliance presenting with lightheadedness. Vitals signs in the ED significant for BP: 204/119 and UA suggestive or proteinuria. Patient is being admitted for further observation and medical management. #Hypertensive Urgency #Medication non-compliance 2/2 cost #History of primary hypertension -Cont. in-pt medical care -s/p IV hydralazine in the ED with appropriate lowering of the B.P -Continuous cardiac monitoring. -Normal CT Head and CXR. -cont Amlodipine 5 MG PO QD. -cont HCTZ 25 MG PO QD. -coreg 6.25 mg BID -Goal BP <140/80 mmHg -Continue to monitor renal function while on HCTZ. -cardio consulted, , no indication for stress test at this time #HLD #CAD s/p PCI with 2 stents (2019) #Elevated Troponin #Tachycardia -Serum Trop: 0.13 >> 0.09 -EKG: no signs of acute ischemia -cont Atorvastatin 40 MG PO QD. -cont ASA 81 MG PO QD. -Hemoglobin A1c ordered. -Cardio following, recs appreciated -EP consulted, recs appreciated #ASHISH on ?CKD #Chronic Kidney Disease #Hypertensive nephropathy -Serum Cr-:; baseline unknown. -Continue to monitor. -Nephrology following, recs appreciated -Renal US ordered #Medication non-compliance -2/2 to cost. -Patient currently unemployed. -CM for help with insurance -SW consult prior to d/c for provide outpatient resources. DVT PPx: Heparin Time spent on encounter: 36 mins, >50% on counseling, coordination of care. Additional 30 mins spent on jason review, reivew of H&P, progrss notes, labs and imaging. Time of note doesn't reflect time of encounter. Subjective Allergies: Coded Allergies: No Known Allergies (Unverified , 07/29/19) Subjective F/u for chest pain. Pt noted he felt anxious today, at that time his HR was in 120's. Pt currently denies any CP, SOB, diaphoresis. Objective Last 24 Hour Vital Signs Date Time Temp Pulse Resp B/P (MAP) Pulse Ox O2 Delivery O2 Flow Rate FiO2 07/30/19 04:00 98.1 78 19 149/90 (109) 94 07/30/19 04:00 68 07/30/19 00:00 97.3 76 19 145/94 (111) 93 07/29/19 23:47 76 07/29/19 21:00 Room Air 07/29/19 20:56 82 148/80 07/29/19 20:00 97.8 82 18 142/89 (106) 95 07/29/19 20:00 80 07/29/19 16:00 79 07/29/19 16:00 98.1 89 18 130/88 (102) 100 07/29/19 12:00 98.0 95 18 139/104 (116) 97 07/29/19 12:00 102 07/29/19 09:00 Room Air 07/29/19 08:00 98.0 99 18 149/95 (113) 98 07/29/19 08:00 96 Intake and Output 07/29/19 07/30/19 19:00 07:00 Intake Total 900 ml 400 ml Output Total 600 ml Balance 900 ml -200 ml Intake Oral 900 ml 400 ml Output Urine Total 600 ml # Voids 3 2 Laboratory Tests 07/29/19 11:40: Troponin I 0.094H, Renin [Pending], Aldosterone [Pending] 07/29/19 20:30: Urine Random Total Protein 10, Urine Creatinine 215.2H 07/30/19 06:03: White Blood Count 5.2, Red Blood Count 5.15, Hemoglobin 15.8, Hematocrit 45.6, Mean Corpuscular Volume 89, Mean Corpuscular Hemoglobin 30.7, Mean Corpuscular Hemoglobin Concent 34.6, Red Cell Distribution Width 12.2, Platelet Count 277, Mean Platelet Volume 6.9, Neutrophils (%) (Auto) 47.5, Lymphocytes (%) (Auto) 37.4, Monocytes (%) (Auto) 10.0, Eosinophils (%) (Auto) 3.4H, Basophils (%) ( Auto) 1.8, Sodium Level [Pending], Potassium Level [Pending], Chloride Level [ Pending], Carbon Dioxide Level [Pending], Blood Urea Nitrogen [Pending], Creatinine [Pending], Estimat Glomerular Filtration Rate [Pending], Glucose Level [Pending], Hemoglobin A1c [Pending], Calcium Level [Pending], Phosphorus Level [Pending], Magnesium Level [Pending], Total Bilirubin [Pending], Aspartate Amino Transf (AST/SGOT) [Pending], Alanine Aminotransferase (ALT/SGPT ) [Pending], Alkaline Phosphatase [Pending], Pro-B-Type Natriuretic Peptide [ Pending], Total Protein [Pending], Albumin [Pending], Globulin [Pending], Triglycerides Level [Pending], Cholesterol Level [Pending], LDL Cholesterol [ Pending], HDL Cholesterol [Pending], Cholesterol/HDL Ratio [Pending], Cortisol AM Sample [Pending] Height (Feet): 5 Height (Inches): 10.00 Weight (Pounds): 250 Objective General Appearance: obese, NAD Lines, tubes and drains: peripheral HEENT: NCAT, anicteric, EOMi Respiratory/Chest: lungs clear, normal breath sounds, no respiratory distress, no accessory muscle use Cardiovascular/Chest: normal rate, regular rhythm, no gallop/murmur Abdomen: non tender, soft, no organomegaly, no mass Extremities: normal range of motion Skin Exam: normal pigmentation 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 Jul 30, 2019 07:49
[2019-07-30 07:52] LABS: ALANINE AMINOTRANSFERASE 37 U/L (12-78); ALBUMIN 3.6 G/DL (3.4-5.0); ALBUMIN/GLOBULIN RATIO 1.1 (1.0-2.7); ALKALINE PHOSPHATASE 56 U/L (46-116); ANION GAP 12 mmol/L (5-15); ASPARTATE AMINO TRANSFERASE 19 U/L (15-37); BLOOD UREA NITROGEN 22 mg/dL (7-18); CALCIUM 8.6 MG/DL (8.5-10.1); CARBON DIOXIDE 24 MMOL/L (21-32); CHLORIDE 107 MMOL/L (98-107); CHOLESTEROL 186 MG/DL (< 200); CREATININE 1.6 MG/DL (0.55-1.30); HDL CHOLESTEROL 44 MG/DL (40-60); POTASSIUM 3.6 MMOL/L (3.5-5.1); SODIUM 143 MMOL/L (136-145); TRIGLYCERIDES 103 MG/DL (30-150)
[2019-07-30 07:59] LABS: PHOSPHORUS 4.6 MG/DL (2.5-4.9)
[2019-07-30 08:00] VITALS: BP 165/104
[2019-07-30] MEDS: hydroCHLOROthiazide 25mg cap ORAL SCH (09:06)
[2019-07-30] MEDS: Aspirin EC 81mg tab ORAL SCH (09:06)
[2019-07-30] MEDS: Carvedilol 6.25mg Tab ORAL SCH (09:06)
[2019-07-30] MEDS: Atorvastatin 20mg tab ORAL SCH (09:06)
[2019-07-30] MEDS: Heparin 5000 units/ml inj SUBQ SCH ×2 (09:16→21:03)
[2019-07-30] MEDS: Flonase Nasal Inhaler 16gm NASAL SCH ×2 (09:32→17:45)
--- NOTE | 2019-07-30 12:09 | Nephrology Progress Note ---
Assessment/Plan Plan #hypertensive urgency #Elevated trop #proteinuria #poorly controlled HTN #HLD - check UTP/cr> negative - increase coreg 12.5mg daily - increase amlodipine to 10mg daily - continue hctz 25mg daily - check renal Us with doppler - check kassie:renin ratio - cardiology eval - 2d echo - asa 81 daily - lipitor 40mg daily Subjective ROS Limited/Unobtainable: No Constitutional: Denies: no symptoms, chills, diaphoresis, fever, malaise, weakness, other HEENT: Denies: no symptoms, eye pain, blurred vision, tearing, double vision, ear pain, ear discharge, nose pain, nose congestion, throat pain, throat swelling, mouth pain, mouth swelling, other Genitourinary: Denies: no symptoms, burning, discharge, frequency, flank pain, hematuria, incontinence, pain, urgency, other Neurologic/Psychiatric: Denies: no symptoms, anxiety, depressed, emotional problems, headache, numbness, paresthesia, pre-existing deficit, seizure, tingling, tremors, weakness, other Subjective Bp remains elevated will increase coreg and amlodipine dose Objective Objective Last 24 Hour Vital Signs Date Time Temp Pulse Resp B/P (MAP) Pulse Ox O2 Delivery O2 Flow Rate FiO2 07/30/19 09:30 Room Air 07/30/19 09:07 87 165/104 07/30/19 09:06 87 165/104 07/30/19 08:22 87 07/30/19 08:00 97.9 77 20 165/104 (124) 07/30/19 04:00 98.1 78 19 149/90 (109) 94 07/30/19 04:00 68 07/30/19 00:00 97.3 76 19 145/94 (111) 93 07/29/19 23:47 76 07/29/19 21:00 Room Air 07/29/19 20:56 82 148/80 07/29/19 20:00 97.8 82 18 142/89 (106) 95 07/29/19 20:00 80 07/29/19 16:00 79 07/29/19 16:00 98.1 89 18 130/88 (102) 100 Intake and Output 07/29/19 07/30/19 19:00 07:00 Intake Total 900 ml 400 ml Output Total 600 ml Balance 900 ml -200 ml Intake Oral 900 ml 400 ml Output Urine Total 600 ml # Voids 3 2 Laboratory Tests 07/29/19 20:30: Urine Random Total Protein 10, Urine Creatinine 215.2H 07/30/19 06:03: White Blood Count 5.2, Red Blood Count 5.15, Hemoglobin 15.8, Hematocrit 45.6, Mean Corpuscular Volume 89, Mean Corpuscular Hemoglobin 30.7, Mean Corpuscular Hemoglobin Concent 34.6, Red Cell Distribution Width 12.2, Platelet Count 277, Mean Platelet Volume 6.9, Neutrophils (%) (Auto) 47.5, Lymphocytes (%) (Auto) 37.4, Monocytes (%) (Auto) 10.0, Eosinophils (%) (Auto) 3.4H, Basophils (%) ( Auto) 1.8, Sodium Level 143, Potassium Level 3.6, Chloride Level 107, Carbon Dioxide Level 24, Anion Gap 12, Blood Urea Nitrogen 22H, Creatinine 1.6H, Estimat Glomerular Filtration Rate 53.6, Glucose Level 104, Hemoglobin A1c 5.8, Calcium Level 8.6, Phosphorus Level 4.6, Magnesium Level 2.2, Total Bilirubin 1.0, Aspartate Amino Transf (AST/SGOT) 19, Alanine Aminotransferase (ALT/SGPT) 37, Alkaline Phosphatase 56, Pro-B-Type Natriuretic Peptide 259H, Total Protein 6.9, Albumin 3.6, Globulin 3.3, Albumin/Globulin Ratio 1.1, Triglycerides Level 103, Cholesterol Level 186, LDL Cholesterol 114H, HDL Cholesterol 44, Cholesterol/HDL Ratio 4.2, Cortisol AM Sample [Pending] Height (Feet): 5 Height (Inches): 10.00 Weight (Pounds): 250 Nena Celaya M.D. Jul 30, 2019 12:09
[2019-07-30 12:40] VITALS: BP 175/111
--- NOTE | 2019-07-30 14:45 | Diagnostic Imaging Report ---
Indication: Chronic renal failure, abnormal renal function tests, possible renal vascular hypertension Technique: Grayscale and duplex images of the kidneys, retroperitoneum, and bladder were obtained. Doppler interrogation of the aorta and renal arteries was performed Comparison: none Findings: Right kidney measures 10.4 cm in length. Left kidney measures 10.4 cm in length. Both kidneys demonstrate normal echogenicity. No hydronephrosis. Multiple cysts are seen in the left kidney.. Normal inferior vena cava. Bladder demonstrates posterior wall thickening versus mass versus debris layering dependently. Main renal artery velocities on the right range from 80-33, with normal flow velocities in the intraparenchymal vessels and normal resistive indices. Renal aortic ratio is 1.2. Left renal artery velocities range from 51-58, with normal velocities in the parenchymal vessels. Normal resistive indices. Note that there are 2 renal arteries on the right. Impression: No sonographic evidence of renal artery stenosis Negative for hydronephrosis Posterior wall bladder wall thickening versus mass versus layering of debris. Consider cystoscopy for further evaluation Incidental finding left renal cyst.
--- NOTE | 2019-07-30 15:17 | Cardiac Electrophysiology PN ---
Subjective Subjective [id number] Objective Last 24 Hour Vital Signs Date Time Temp Pulse Resp B/P (MAP) Pulse Ox O2 Delivery O2 Flow Rate FiO2 07/30/19 13:01 175/111 07/30/19 12:41 84 07/30/19 12:40 97.3 84 20 175/111 (132) 94 07/30/19 09:30 Room Air 07/30/19 09:07 87 165/104 07/30/19 09:06 87 165/104 07/30/19 08:22 87 07/30/19 08:00 97.9 77 20 165/104 (124) 07/30/19 04:00 98.1 78 19 149/90 (109) 94 07/30/19 04:00 68 07/30/19 00:00 97.3 76 19 145/94 (111) 93 07/29/19 23:47 76 07/29/19 21:00 Room Air 07/29/19 20:56 82 148/80 07/29/19 20:00 97.8 82 18 142/89 (106) 95 07/29/19 20:00 80 07/29/19 16:00 79 07/29/19 16:00 98.1 89 18 130/88 (102) 100 Intake and Output 07/29/19 07/30/19 19:00 07:00 Intake Total 900 ml 400 ml Output Total 600 ml Balance 900 ml -200 ml Intake Oral 900 ml 400 ml Output Urine Total 600 ml # Voids 3 2 Laboratory Tests Test 07/29/19 20:30 07/30/19 06:03 Urine Random Total Protein 10 MG/DL (< 11.9) Urine Creatinine 215.2 MG/DL (30.0-125.0) H White Blood Count 5.2 K/UL (4.8-10.8) Red Blood Count 5.15 M/UL (4.70-6.10) Hemoglobin 15.8 G/DL (14.2-18.0) Hematocrit 45.6 % (42.0-52.0) Mean Corpuscular Volume 89 FL (80-99) Mean Corpuscular Hemoglobin 30.7 PG (27.0-31.0) Mean Corpuscular Hemoglobin Concent 34.6 G/DL (32.0-36.0) Red Cell Distribution Width 12.2 % (11.6-14.8) Platelet Count 277 K/UL (150-450) Mean Platelet Volume 6.9 FL (6.5-10.1) Neutrophils (%) (Auto) 47.5 % (45.0-75.0) Lymphocytes (%) (Auto) 37.4 % (20.0-45.0) Monocytes (%) (Auto) 10.0 % (1.0-10.0) Eosinophils (%) (Auto) 3.4 % (0.0-3.0) H Basophils (%) (Auto) 1.8 % (0.0-2.0) Sodium Level 143 MMOL/L (136-145) Potassium Level 3.6 MMOL/L (3.5-5.1) Chloride Level 107 MMOL/L (98-107) Carbon Dioxide Level 24 MMOL/L (21-32) Anion Gap 12 mmol/L (5-15) Blood Urea Nitrogen 22 mg/dL (7-18) H Creatinine 1.6 MG/DL (0.55-1.30) H Estimat Glomerular Filtration Rate 53.6 mL/min (>60) Glucose Level 104 MG/DL (74-106) Hemoglobin A1c 5.8 % (4.3-6.0) Calcium Level 8.6 MG/DL (8.5-10.1) Phosphorus Level 4.6 MG/DL (2.5-4.9) Magnesium Level 2.2 MG/DL (1.8-2.4) Total Bilirubin 1.0 MG/DL (0.2-1.0) Aspartate Amino Transf (AST/SGOT) 19 U/L (15-37) Alanine Aminotransferase (ALT/SGPT) 37 U/L (12-78) Alkaline Phosphatase 56 U/L (46-116) Troponin I Pending Pro-B-Type Natriuretic Peptide 259 pg/mL (0-125) H Total Protein 6.9 G/DL (6.4-8.2) Albumin 3.6 G/DL (3.4-5.0) Globulin 3.3 g/dL Albumin/Globulin Ratio 1.1 (1.0-2.7) Triglycerides Level 103 MG/DL (30-150) Cholesterol Level 186 MG/DL (< 200) LDL Cholesterol 114 mg/dL (<100) H HDL Cholesterol 44 MG/DL (40-60) Cholesterol/HDL Ratio 4.2 (3.3-4.4) Cortisol AM Sample Pending Isidro Chisholm MD Jul 30, 2019 15:17
[2019-07-30 16:28] VITALS: BP 151/89
[2019-07-30 20:00] VITALS: BP 149/81
[2019-07-30] MEDS: Carvedilol 25mg Tab ORAL SCH (20:57)
--- NOTE | 2019-07-30 20:57 | Neurology Progress Note ---
Interim History Interim History ROS Limited/Unobtainable: No Interim History denies dizziness, BP stable, seen by cardio Objective Physical Exam Last Vital Signs Date Time Temp Pulse Resp B/P (MAP) Pulse Ox O2 Delivery O2 Flow Rate FiO2 07/30/19 16:29 81 07/30/19 16:28 97.9 20 151/89 (109) 96 07/30/19 09:30 Room Air 07/29/19 03:30 98 Laboratory Tests Test 07/30/19 06:03 White Blood Count 5.2 K/UL (4.8-10.8) Red Blood Count 5.15 M/UL (4.70-6.10) Hemoglobin 15.8 G/DL (14.2-18.0) Hematocrit 45.6 % (42.0-52.0) Mean Corpuscular Volume 89 FL (80-99) Mean Corpuscular Hemoglobin 30.7 PG (27.0-31.0) Mean Corpuscular Hemoglobin Concent 34.6 G/DL (32.0-36.0) Red Cell Distribution Width 12.2 % (11.6-14.8) Platelet Count 277 K/UL (150-450) Mean Platelet Volume 6.9 FL (6.5-10.1) Neutrophils (%) (Auto) 47.5 % (45.0-75.0) Lymphocytes (%) (Auto) 37.4 % (20.0-45.0) Monocytes (%) (Auto) 10.0 % (1.0-10.0) Eosinophils (%) (Auto) 3.4 % (0.0-3.0) H Basophils (%) (Auto) 1.8 % (0.0-2.0) Sodium Level 143 MMOL/L (136-145) Potassium Level 3.6 MMOL/L (3.5-5.1) Chloride Level 107 MMOL/L (98-107) Carbon Dioxide Level 24 MMOL/L (21-32) Anion Gap 12 mmol/L (5-15) Blood Urea Nitrogen 22 mg/dL (7-18) H Creatinine 1.6 MG/DL (0.55-1.30) H Estimat Glomerular Filtration Rate 53.6 mL/min (>60) Glucose Level 104 MG/DL (74-106) Hemoglobin A1c 5.8 % (4.3-6.0) Calcium Level 8.6 MG/DL (8.5-10.1) Phosphorus Level 4.6 MG/DL (2.5-4.9) Magnesium Level 2.2 MG/DL (1.8-2.4) Total Bilirubin 1.0 MG/DL (0.2-1.0) Aspartate Amino Transf (AST/SGOT) 19 U/L (15-37) Alanine Aminotransferase (ALT/SGPT) 37 U/L (12-78) Alkaline Phosphatase 56 U/L (46-116) Troponin I 0.062 ng/mL (0.000-0.056) Pro-B-Type Natriuretic Peptide 259 pg/mL (0-125) H Total Protein 6.9 G/DL (6.4-8.2) Albumin 3.6 G/DL (3.4-5.0) Globulin 3.3 g/dL Albumin/Globulin Ratio 1.1 (1.0-2.7) Triglycerides Level 103 MG/DL (30-150) Cholesterol Level 186 MG/DL (< 200) LDL Cholesterol 114 mg/dL (<100) H HDL Cholesterol 44 MG/DL (40-60) Cholesterol/HDL Ratio 4.2 (3.3-4.4) Cortisol AM Sample 8.3 UG/DL Impression/Recommendations Problems: (1) Hypertensive encephalopathy (2) ACS (acute coronary syndrome) (3) CKD (chronic kidney disease) Status: doing well, stable Liam Castaneda MD Jul 30, 2019 20:57
[2019-07-30] MEDS ORDERED: Carvedilol 12.5mg tab ORAL SCH (21:00)
[2019-07-30] MEDS ORDERED: LORazepam 0.5mg tab ORAL PRN (23:45)
[2019-07-31] VITALS: BP 150/93
--- NOTE | 2019-07-31 00:30 | Consultation ---
DATE OF CONSULTATION: 07/30/2019 CARDIAC ELECTROPHYSIOLOGY CONSULTATION CONSULTING PHYSICIAN: Isidro Chisholm M.D. REFERRING PHYSICIAN: Gia Mg M.D. REASON FOR CONSULTATION: Tachycardia. HISTORY OF PRESENT ILLNESS: The patient is a very pleasant 63-year-old gentleman with history of hypertension and hyperlipidemia as well as coronary artery disease, history of prior stent in 2019 at [facility] as well as chronic kidney disease, who presented to the emergency room for episodes of hypertension. He knows his blood pressure at home was 240s. In the ER, patient's blood pressure was 204/119 and also had proteinuria. The patient had lightheadedness. He stated he stopped taking all of his medication 4 months ago. The patient received IV hydralazine in the emergency room and had a normal CT of the head. The patient was admitted and a Cardiology consultation was obtained for further evaluation as the patient was still tachycardic. His troponin was elevated at 0.136 and 0.094. However, the patient had renal failure. Creatinine was 1.6. REVIEW OF SYSTEMS: Review of systems was negative other than what was mentioned in the history of present illness. PAST MEDICAL HISTORY: As mentioned above. FAMILY HISTORY: Noncontributory. SOCIAL HISTORY: He lives at home. Does not smoke or drink alcohol. Denies using any drugs. PHYSICAL EXAMINATION: VITAL SIGNS: Show blood pressure of 175/111, pulse 84, respirations 18, temperature 97.3. HEAD AND NECK: Showed no JVD. LUNGS: Clear. CARDIOVASCULAR: Shows regular S1 and S2 with no gallop or murmur. ABDOMEN: Soft. EXTREMITIES: No pitting edema. LABORATORY AND DIAGNOSTIC DATA: Labs show sodium 142, potassium 3.6, BUN of 22, creatinine 1.6, glucose of 104. BNP is 259. Troponin is 0.136 and 0.094. His urine tox screen is negative. ASSESSMENT AND PLAN: 1. Tachycardia. This is due to sinus tachycardia with no evidence of atrial fibrillation. I will increase the Coreg to 25 mg b.i.d. We will get an echocardiogram to follow up for ejection fraction and wall motion abnormality as well. 2. Troponin leak, likely due to renal failure. His creatinine is 1.6. The patient also can have demand ischemia as well. Further evaluation by Dr. Ferrari. 3. Accelerated hypertension. Increase the Coreg to 25 b.i.d. Continue Norvasc 10 mg daily and keep him on p.r.n. clonidine. 4. Hyperlipidemia, on Lipitor. Patient is also on hydrochlorothiazide for blood pressure. 5. History of coronary artery disease with prior stent placement. Again, on aspirin and Lipitor and Coreg, under management of Dr. Ferrari. Thank you very much for allowing me to participate in the care of this patient. Please do not hesitate to contact me for any questions regarding my evaluation. Isidro Chisholm M.D. DR: THOMPSON JOB#: [id number] CC:
[2019-07-31] MEDS: TraZODone 50mg tab ORAL PRN ×2 (01:40→22:33)
--- NOTE | 2019-07-31 03:14 | Consultation ---
DATE OF CONSULTATION: 07/29/2019 HISTORY OF PRESENT ILLNESS: The patient is a 63-year-old black male with a history of hypertension, anxiety, obesity, dizziness who has been admitted to the hospital due to dizziness. The patient is presenting with anxiety, insomnia, and fatigue. He is not endorsing any suicidal or homicidal ideation. No depressive symptoms. PAST PSYCHIATRIC HISTORY: He denies any history of psychiatric hospitalization. No suicide attempts. PAST MEDICAL HISTORY: Significant as above. ALLERGIES: No known drug allergies. SUBSTANCE ABUSE HISTORY: No known history of illicit drug use or alcohol. MENTAL STATUS EXAMINATION: The patient is alert and oriented to time, self, place, and situation. Mood is anxious. Affect is flat. Thought process is concrete. Thought content, no suicidal or homicidal ideation. ASSESSMENT: Stable. PLAN: 1. We will continue current medications. 2. Lexapro 10 mg. 3. Trazodone. 4. Ativan p.r.n. Gail Zepeda M.D. DR: Christy JOB#: [id number] CC: KEYANNA
[2019-07-31 04:00] VITALS: BP 144/89
[2019-07-31 06:54] LABS: BASOPHILS % (AUTO) 1.7 % (0.0-2.0); EOSINOPHILS % (AUTO) 4.2 % (0.0-3.0); HEMATOCRIT 44.6 % (42.0-52.0); HEMOGLOBIN 15.4 G/DL (14.2-18.0); LYMPHOCYTES % (AUTO) 41.9 % (20.0-45.0); MEAN CORPUSCULAR VOLUME 88 FL (80-99); MONOCYTES % (AUTO) 9.1 % (1.0-10.0); NEUTROPHILS % (AUTO) 43.1 % (45.0-75.0); PLATELET COUNT 263 K/UL (150-450); RED BLOOD COUNT 5.05 M/UL (4.70-6.10); RED CELL DISTRIBUTION WIDTH 11.9 % (11.6-14.8); WHITE BLOOD COUNT 5.5 K/UL (4.8-10.8)
[2019-07-31 07:36] LABS: ANION GAP 10 mmol/L (5-15); BLOOD UREA NITROGEN 24 mg/dL (7-18); CALCIUM 9.4 MG/DL (8.5-10.1); CARBON DIOXIDE 26 MMOL/L (21-32); CHLORIDE 104 MMOL/L (98-107); CHOLESTEROL 172 MG/DL (< 200); CREATININE 1.6 MG/DL (0.55-1.30); HDL CHOLESTEROL 42 MG/DL (40-60); POTASSIUM 3.7 MMOL/L (3.5-5.1); SODIUM 140 MMOL/L (136-145); TRIGLYCERIDES 92 MG/DL (30-150)
[2019-07-31 08:00] VITALS: BP 162/104
[2019-07-31] MEDS: Heparin 5000 units/ml inj SUBQ SCH ×2 (09:56→20:05)
[2019-07-31] MEDS: hydroCHLOROthiazide 25mg cap ORAL SCH (09:58)
[2019-07-31] MEDS: Flonase Nasal Inhaler 16gm NASAL SCH ×2 (09:58→19:29)
[2019-07-31] MEDS: Carvedilol 25mg Tab ORAL SCH ×2 (09:58→20:06)
[2019-07-31] MEDS: Atorvastatin 20mg tab ORAL SCH (09:58)
[2019-07-31] MEDS: Aspirin EC 81mg tab ORAL SCH (09:59)
--- NOTE | 2019-07-31 10:04 | General Progress Note ---
Assessment/Plan Status: doing well, stable Assessment/Plan: 63 YO M with HTN, HLD ,atherosclerotic CAD s/p PCI with 2 stents (2019), CKD, medication non-compliance presenting with lightheadedness. Vitals signs in the ED significant for BP: 204/119 and UA suggestive or proteinuria. Patient is being admitted for further observation and medical management. #Hypertensive Urgency #Medication non-compliance 2/2 cost #History of primary hypertension -Cont. in-pt medical care -s/p IV hydralazine in the ED with appropriate lowering of the B.P -Continuous cardiac monitoring. -Normal CT Head and CXR. -Goal BP <140/80 mmHg -Amlodipine 10 MG PO QD, HCTZ 25, Coreg 25 BID -add hydralazine -cardio, , no indication for stress test at this time #HLD #CAD s/p PCI with 2 stents (2019) #Elevated Troponin #Tachycardia -Serum Trop: 0.13 >> 0.09 -EKG: no signs of acute ischemia -sinus tach, no evidence of a fib -cont Atorvastatin 40 MG PO QD. -cont ASA 81 MG PO QD. -Cardio following, recs appreciated -EP following: echo results pending #ASHISH on ?CKD #Chronic Kidney Disease #Hypertensive nephropathy -Serum Cr 1.6, baseline unknown. -Continue to monitor. -Renal US reviewed: no renal artery stenosis, no hydronephrosis. posterior wall bladder wall thickening vs mass vs layering of debris -Nephrology following, recs appreciated #Medication non-compliance -2/2 to cost. -Patient currently unemployed. -CM for help with insurance -SW consult prior to d/c for provide outpatient resources. #Abnormal Bladder US -Renal US w/shadowing, ?sediment vs mass -Repeat Renal US -Urology consulted, Dr Champagne, recs appreciated DVT PPx: Heparin Time spent on encounter: 36 mins, >50% on pt counseling, coordination of care w/ RN Additional 30 mins spent with coordination of care, discussed case w/Dr. Champagne , Dr. Chisholm. Time of note doesn't reflect time of encounter. Subjective Allergies: Coded Allergies: No Known Allergies (Unverified , 07/29/19) Subjective F/u for elevated HTN. Pt denies any [place], vision changes, SOB, CP, diaphoresis today. BP remains high. Objective Last 24 Hour Vital Signs Date Time Temp Pulse Resp B/P (MAP) Pulse Ox O2 Delivery O2 Flow Rate FiO2 07/31/19 08:26 Room Air 07/31/19 08:00 98.3 81 20 162/104 (123) 96 07/31/19 04:00 70 07/31/19 04:00 97.7 71 18 144/89 (107) 96 07/31/19 00:00 98.2 84 18 150/93 (112) 97 07/30/19 23:32 65 07/30/19 21:00 Room Air 07/30/19 20:57 81 151/89 07/30/19 20:00 104 07/30/19 20:00 98.2 84 21 149/81 (103) 93 07/30/19 16:29 81 07/30/19 16:28 97.9 81 20 151/89 (109) 96 07/30/19 13:01 175/111 07/30/19 12:41 84 07/30/19 12:40 97.3 84 20 175/111 (132) 94 Intake and Output 07/30/19 07/31/19 19:00 07:00 Intake Total 1080 ml Balance 1080 ml Intake Oral 1080 ml # Voids 2 3 Laboratory Tests 07/31/19 06:01: White Blood Count 5.5, Red Blood Count 5.05, Hemoglobin 15.4, Hematocrit 44.6, Mean Corpuscular Volume 88, Mean Corpuscular Hemoglobin 30.4, Mean Corpuscular Hemoglobin Concent 34.4, Red Cell Distribution Width 11.9, Platelet Count 263, Mean Platelet Volume 7.5, Neutrophils (%) (Auto) 43.1L, Lymphocytes (%) (Auto) 41.9, Monocytes (%) (Auto) 9.1, Eosinophils (%) (Auto) 4.2H, Basophils (%) (Auto ) 1.7, Sodium Level 140, Potassium Level 3.7, Chloride Level 104, Carbon Dioxide Level 26, Anion Gap 10, Blood Urea Nitrogen 24H, Creatinine 1.6H, Estimat Glomerular Filtration Rate 53.6, Glucose Level 100, Calcium Level 9.4, Troponin I 0.046, Pro-B-Type Natriuretic Peptide 136H, Triglycerides Level 92, Cholesterol Level 172, LDL Cholesterol 116H, HDL Cholesterol 42, Cholesterol/ HDL Ratio 4.1, Thyroid Stimulating Hormone (TSH) 1.227 Height (Feet): 5 Height (Inches): 10.00 Weight (Pounds): 250 Objective General Appearance: obese, NAD Lines, tubes and drains: peripheral HEENT: NCAT, anicteric, EOMi Respiratory/Chest: lungs clear, normal breath sounds, no respiratory distress, no accessory muscle use Cardiovascular/Chest: normal rate, regular rhythm, no gallop/murmur Abdomen: non tender, soft, no organomegaly, no mass Extremities: no edema Skin Exam: normal pigmentation MSK: no reproducible pain on anterior wall palpation Swetha Trinh M.D. Jul 31, 2019 10:04
--- NOTE | 2019-07-31 10:56 | Cardiac Electrophysiology PN ---
Assessment/Plan Assessment/Plan 1. Sinus tachycardia with no evidence of atrial fibrillation. On Coreg to 25 mg b.i.d. EF 55% 2. Troponin leak and hx of coronary artery disease with prior stent placement. Likely due to renal failure and demand ischemia. No CP . Fu by Dr. Ferrari. On Aspirin, COreg and Lipitor 3. Accelerated hypertension. Despite Coreg 25 b.i.d. HCTZ 25 and Norvasc 10 mg daily Add Hydralazine 25 bid 4. Hyperlipidemia, on Lipitor. Subjective Subjective BP was still high. No CP or SOB Objective Last 24 Hour Vital Signs Date Time Temp Pulse Resp B/P (MAP) Pulse Ox O2 Delivery O2 Flow Rate FiO2 07/31/19 09:59 81 162/104 07/31/19 09:59 162/104 07/31/19 09:58 81 162/104 07/31/19 08:26 Room Air 07/31/19 08:00 98.3 81 20 162/104 (123) 96 07/31/19 04:00 70 07/31/19 04:00 97.7 71 18 144/89 (107) 96 07/31/19 00:00 98.2 84 18 150/93 (112) 97 07/30/19 23:32 65 07/30/19 21:00 Room Air 07/30/19 20:57 81 151/89 07/30/19 20:00 104 07/30/19 20:00 98.2 84 21 149/81 (103) 93 07/30/19 16:29 81 07/30/19 16:28 97.9 81 20 151/89 (109) 96 07/30/19 13:01 175/111 07/30/19 12:41 84 07/30/19 12:40 97.3 84 20 175/111 (132) 94 Intake and Output 07/30/19 07/31/19 19:00 07:00 Intake Total 1080 ml Balance 1080 ml Intake Oral 1080 ml # Voids 2 3 Laboratory Tests Test 07/31/19 06:01 White Blood Count 5.5 K/UL (4.8-10.8) Red Blood Count 5.05 M/UL (4.70-6.10) Hemoglobin 15.4 G/DL (14.2-18.0) Hematocrit 44.6 % (42.0-52.0) Mean Corpuscular Volume 88 FL (80-99) Mean Corpuscular Hemoglobin 30.4 PG (27.0-31.0) Mean Corpuscular Hemoglobin Concent 34.4 G/DL (32.0-36.0) Red Cell Distribution Width 11.9 % (11.6-14.8) Platelet Count 263 K/UL (150-450) Mean Platelet Volume 7.5 FL (6.5-10.1) Neutrophils (%) (Auto) 43.1 % (45.0-75.0) L Lymphocytes (%) (Auto) 41.9 % (20.0-45.0) Monocytes (%) (Auto) 9.1 % (1.0-10.0) Eosinophils (%) (Auto) 4.2 % (0.0-3.0) H Basophils (%) (Auto) 1.7 % (0.0-2.0) Sodium Level 140 MMOL/L (136-145) Potassium Level 3.7 MMOL/L (3.5-5.1) Chloride Level 104 MMOL/L (98-107) Carbon Dioxide Level 26 MMOL/L (21-32) Anion Gap 10 mmol/L (5-15) Blood Urea Nitrogen 24 mg/dL (7-18) H Creatinine 1.6 MG/DL (0.55-1.30) H Estimat Glomerular Filtration Rate 53.6 mL/min (>60) Glucose Level 100 MG/DL (74-106) Calcium Level 9.4 MG/DL (8.5-10.1) Troponin I 0.046 ng/mL (0.000-0.056) Pro-B-Type Natriuretic Peptide 136 pg/mL (0-125) H Triglycerides Level 92 MG/DL (30-150) Cholesterol Level 172 MG/DL (< 200) LDL Cholesterol 116 mg/dL (<100) H HDL Cholesterol 42 MG/DL (40-60) Cholesterol/HDL Ratio 4.1 (3.3-4.4) Thyroid Stimulating Hormone (TSH) 1.227 uiU/mL (0.358-3.740) Objective HEAD AND NECK: No JVD. LUNGS: Clear. CARDIOVASCULAR: Regular S1 and S2 with no gallop or murmur. ABDOMEN: Soft. EXTREMITIES: No pitting edema. Isidro Chisholm MD Jul 31, 2019 10:56
[2019-07-31 12:00] VITALS: BP 157/101
--- NOTE | 2019-07-31 12:26 | Nephrology Progress Note ---
Assessment/Plan Plan #hypertensive urgency #Elevated trop #proteinuria #poorly controlled HTN #HLD - check UTP/cr> negative - increase coreg 12.5mg daily - increase amlodipine to 10mg daily - continue hctz 25mg daily - increase hydralazine 50 tid - check renal Us with doppler - check kassie:renin ratio - cardiology eval - 2d echo - asa 81 daily - lipitor 40mg daily Impression: No sonographic evidence of renal artery stenosis Negative for hydronephrosis Posterior wall bladder wall thickening versus mass versus layering of debris. Consider cystoscopy for further evaluation Incidental finding left renal cyst. needs repeat US Subjective ROS Limited/Unobtainable: No Subjective Bp remains elevated increased coreg and amlodipine dose increase hydralazine 50 TID Renal US: Impression: No sonographic evidence of renal artery stenosis Negative for hydronephrosis Posterior wall bladder wall thickening versus mass versus layering of debris. Consider cystoscopy for further evaluation Incidental finding left renal cyst. Repeat US Objective Objective Last 24 Hour Vital Signs Date Time Temp Pulse Resp B/P (MAP) Pulse Ox O2 Delivery O2 Flow Rate FiO2 07/31/19 09:59 81 162/104 07/31/19 09:59 162/104 07/31/19 09:58 81 162/104 07/31/19 08:26 Room Air 07/31/19 08:00 98.3 81 20 162/104 (123) 96 07/31/19 07:57 82 07/31/19 04:00 70 07/31/19 04:00 97.7 71 18 144/89 (107) 96 07/31/19 00:00 98.2 84 18 150/93 (112) 97 07/30/19 23:32 65 07/30/19 21:00 Room Air 07/30/19 20:57 81 151/89 07/30/19 20:00 104 07/30/19 20:00 98.2 84 21 149/81 (103) 93 07/30/19 16:29 81 07/30/19 16:28 97.9 81 20 151/89 (109) 96 07/30/19 13:01 175/111 07/30/19 12:41 84 07/30/19 12:40 97.3 84 20 175/111 (132) 94 Intake and Output 07/30/19 07/31/19 19:00 07:00 Intake Total 1080 ml Balance 1080 ml Intake Oral 1080 ml # Voids 2 3 Laboratory Tests 07/31/19 06:01: White Blood Count 5.5, Red Blood Count 5.05, Hemoglobin 15.4, Hematocrit 44.6, Mean Corpuscular Volume 88, Mean Corpuscular Hemoglobin 30.4, Mean Corpuscular Hemoglobin Concent 34.4, Red Cell Distribution Width 11.9, Platelet Count 263, Mean Platelet Volume 7.5, Neutrophils (%) (Auto) 43.1L, Lymphocytes (%) (Auto) 41.9, Monocytes (%) (Auto) 9.1, Eosinophils (%) (Auto) 4.2H, Basophils (%) (Auto ) 1.7, Sodium Level 140, Potassium Level 3.7, Chloride Level 104, Carbon Dioxide Level 26, Anion Gap 10, Blood Urea Nitrogen 24H, Creatinine 1.6H, Estimat Glomerular Filtration Rate 53.6, Glucose Level 100, Calcium Level 9.4, Troponin I 0.046, Pro-B-Type Natriuretic Peptide 136H, Triglycerides Level 92, Cholesterol Level 172, LDL Cholesterol 116H, HDL Cholesterol 42, Cholesterol/ HDL Ratio 4.1, Thyroid Stimulating Hormone (TSH) 1.227 Height (Feet): 5 Height (Inches): 10.00 Weight (Pounds): 250 Nena Celaya M.D. Jul 31, 2019 12:26
[2019-07-31] MEDS: HydrALAZINE 50mg tab ORAL SCH ×2 (14:20→19:29)
--- NOTE | 2019-07-31 15:27 | Diagnostic Imaging Report ---
Indication: Abnormal bladder demonstrated on recent sonogram Technique: Grayscale and duplex images of the kidneys, retroperitoneum, and bladder were obtained. Comparison: 07/30/2019 Findings: Right kidney measures 10 cm in length. Left kidney measures 10.2 cm in length. Both kidneys demonstrate normal echogenicity. No hydronephrosis. Left kidney demonstrates cysts. Normal inferior vena cava. Bilateral ureteral jets are demonstrated within the bladder Bladder demonstrate focal wall thickening versus sessile mass, appearance of which is similar to the previous day's exam and presumably does not represent debris. Impression: Persistent asymmetric focal wall thickening versus sessile mass of the posterior bladder wall, similar to previous day's exam and probably not representing debris. Consider further investigation with cystoscopy Negative for hydronephrosis Incidental finding left renal cysts
[2019-07-31 16:30] VITALS: BP 134/89
[2019-07-31] MEDS ORDERED: HydrALAZINE 25mg tab ORAL SCH (18:00)
[2019-07-31 20:00] VITALS: BP 158/98
--- NOTE | 2019-07-31 22:03 | Neurology Progress Note ---
Interim History Interim History ROS Limited/Unobtainable: No Interim History bp still not at goal Objective Physical Exam Last Vital Signs Date Time Temp Pulse Resp B/P (MAP) Pulse Ox O2 Delivery O2 Flow Rate FiO2 07/31/19 20:06 78 149/81 07/31/19 16:30 97.7 20 98 07/31/19 08:26 Room Air 07/29/19 03:30 98 Laboratory Tests Test 07/31/19 06:01 White Blood Count 5.5 K/UL (4.8-10.8) Red Blood Count 5.05 M/UL (4.70-6.10) Hemoglobin 15.4 G/DL (14.2-18.0) Hematocrit 44.6 % (42.0-52.0) Mean Corpuscular Volume 88 FL (80-99) Mean Corpuscular Hemoglobin 30.4 PG (27.0-31.0) Mean Corpuscular Hemoglobin Concent 34.4 G/DL (32.0-36.0) Red Cell Distribution Width 11.9 % (11.6-14.8) Platelet Count 263 K/UL (150-450) Mean Platelet Volume 7.5 FL (6.5-10.1) Neutrophils (%) (Auto) 43.1 % (45.0-75.0) L Lymphocytes (%) (Auto) 41.9 % (20.0-45.0) Monocytes (%) (Auto) 9.1 % (1.0-10.0) Eosinophils (%) (Auto) 4.2 % (0.0-3.0) H Basophils (%) (Auto) 1.7 % (0.0-2.0) Sodium Level 140 MMOL/L (136-145) Potassium Level 3.7 MMOL/L (3.5-5.1) Chloride Level 104 MMOL/L (98-107) Carbon Dioxide Level 26 MMOL/L (21-32) Anion Gap 10 mmol/L (5-15) Blood Urea Nitrogen 24 mg/dL (7-18) H Creatinine 1.6 MG/DL (0.55-1.30) H Estimat Glomerular Filtration Rate 53.6 mL/min (>60) Glucose Level 100 MG/DL (74-106) Calcium Level 9.4 MG/DL (8.5-10.1) Troponin I 0.046 ng/mL (0.000-0.056) Pro-B-Type Natriuretic Peptide 136 pg/mL (0-125) H Triglycerides Level 92 MG/DL (30-150) Cholesterol Level 172 MG/DL (< 200) LDL Cholesterol 116 mg/dL (<100) H HDL Cholesterol 42 MG/DL (40-60) Cholesterol/HDL Ratio 4.1 (3.3-4.4) Thyroid Stimulating Hormone (TSH) 1.227 uiU/mL (0.358-3.740) Impression/Recommendations Problems: (1) Hypertensive encephalopathy (2) ACS (acute coronary syndrome) (3) CKD (chronic kidney disease) Status: doing well, stable Liam Castaneda MD Jul 31, 2019 22:03
[2019-08-01] VITALS: BP 175/111
--- NOTE | 2019-08-01 03:29 | Consultation ---
DATE OF CONSULTATION: 07/31/2019 CONSULTING PHYSICIAN: Gideon Champagne MD REFERRING PHYSICIAN: Dr. Olivia Trinh REASON FOR CONSULTATION: For questionable bladder mass. HISTORY OF PRESENT ILLNESS: This is a 63-year-old male who was admitted to the hospital because of hypertensive emergency. He was noted to have some acute kidney injury. Renal ultrasound showed questionable bladder mass. Patient denies any history of gross hematuria. PAST MEDICAL HISTORY: Chart reviewed. MEDICATIONS: List was reviewed. The patient is a nonsmoker. PHYSICAL EXAM: His vitals are stable. ABDOMEN: Soft. LABORATORY STUDIES: Reviewed. His UA shows protein, but no red cells in the high-power field. IMAGING STUDIES: The renal ultrasound was reviewed. IMPRESSION: Questionable bladder mass versus focal thickening by renal ultrasound. PLAN: The patient does not have any gross hematuria. No history of smoking. The ultrasound findings are equivocal. Nevertheless, he should probably have a cystoscopy at some point to make sure the bladder is clear and this can be done electively as an outpatient, and I did furnish the patient with all my contact information, so he can make a followup appointment to have an outpatient cystoscopy done. Thank you for this consultation. Gideon Champagne M.D. DR: Karlene JOB#: [id number] CC:
[2019-08-01 04:00] VITALS: BP 169/109
[2019-08-01 06:07] VITALS: BP 152/98
[2019-08-01 07:11] LABS: ANION GAP 9 mmol/L (5-15); BLOOD UREA NITROGEN 26 mg/dL (7-18); CALCIUM 9.1 MG/DL (8.5-10.1); CARBON DIOXIDE 27 MMOL/L (21-32); CHLORIDE 103 MMOL/L (98-107); CREATININE 1.7 MG/DL (0.55-1.30); POTASSIUM 3.6 MMOL/L (3.5-5.1); SODIUM 139 MMOL/L (136-145)
[2019-08-01 07:12] LABS: BASOPHILS % (AUTO) 1.8 % (0.0-2.0); EOSINOPHILS % (AUTO) 2.8 % (0.0-3.0); HEMATOCRIT 44.8 % (42.0-52.0); HEMOGLOBIN 15.3 G/DL (14.2-18.0); LYMPHOCYTES % (AUTO) 39.2 % (20.0-45.0); MEAN CORPUSCULAR VOLUME 88 FL (80-99); MONOCYTES % (AUTO) 9.4 % (1.0-10.0); NEUTROPHILS % (AUTO) 46.8 % (45.0-75.0); PLATELET COUNT 249 K/UL (150-450); RED BLOOD COUNT 5.08 M/UL (4.70-6.10); RED CELL DISTRIBUTION WIDTH 11.9 % (11.6-14.8); WHITE BLOOD COUNT 5.4 K/UL (4.8-10.8)
[2019-08-01 08:00] VITALS: BP 130/68
--- NOTE | 2019-08-01 08:05 | General Progress Note ---
Assessment/Plan Status: doing well, stable Assessment/Plan: 63 YO M with HTN, HLD ,atherosclerotic CAD s/p PCI with 2 stents (2019), CKD, medication non-compliance presenting with lightheadedness. Vitals signs in the ED significant for BP: 204/119 and UA suggestive or proteinuria. Patient is being admitted for further observation and medical management. #Hypertensive Urgency #Medication non-compliance 2/2 cost #History of primary hypertension -Cont. in-pt medical care -s/p IV hydralazine in the ED with appropriate lowering of the B.P -Continuous cardiac monitoring. -Normal CT Head and CXR. -Goal BP <140/80 mmHg -Amlodipine 10 MG PO QD, Coreg 25 BID -hydralazine increased to 100 TID -start low dose HCTZ 12.5 -cardio, , no indication for stress test at this time #HLD #CAD s/p PCI with 2 stents (2019) #Elevated Troponin #Tachycardia -Serum Trop: 0.13 >> 0.09 -EKG: no signs of acute ischemia -sinus tach, no evidence of a fib -cont Atorvastatin 40 MG PO QD. -cont ASA 81 MG PO QD. -Cardio following, recs appreciated -EP following: echo results pending #?ASHISH on CKD #Chronic Kidney Disease #Hypertensive nephropathy -Serum Cr 1.6 -Renal US reviewed: no renal artery stenosis, no hydronephrosis. posterior wall bladder wall thickening vs mass vs layering of debris -d/w nephro, Cr likely at pt's b/l, OK to start diuretic -Nephrology following, recs appreciated #Medication non-compliance -2/2 to cost. -Patient currently unemployed. -CM for help with insurance - consult prior to d/c for provide outpatient resources. #Abnormal Bladder US -Renal US w/shadowing, ?sediment vs mass -Repeat Renal US with similar findings -Urology consulted, Dr Champagne, OK for o/p cystoscopy DVT PPx: Heparin Time spent on encounter: 36 mins, >50% on pt counseling, coordination of care w/ RN Time of note doesn't reflect time of encounter. Subjective Allergies: Coded Allergies: No Known Allergies (Unverified , 07/29/19) Subjective F/u for elevated HTN. Pt states he feels well, no M[place], vision changes, SOB, CP, abd pain. Objective Last 24 Hour Vital Signs Date Time Temp Pulse Resp B/P (MAP) Pulse Ox O2 Delivery O2 Flow Rate FiO2 08/01/19 06:07 98.5 88 18 152/98 (116) 94 08/01/19 05:08 169/105 08/01/19 04:00 98.5 88 18 169/109 (129) 94 08/01/19 04:00 56 08/01/19 00:00 97.3 80 18 175/111 (132) 99 07/31/19 23:37 58 07/31/19 21:00 Room Air 07/31/19 20:06 78 149/81 07/31/19 20:00 70 07/31/19 20:00 97.9 77 19 158/98 (118) 99 07/31/19 19:29 134/89 07/31/19 16:30 97.7 64 20 134/89 (104) 98 07/31/19 16:00 79 07/31/19 14:20 157/101 07/31/19 12:00 98.2 75 20 157/101 (119) 95 07/31/19 11:47 75 07/31/19 09:59 81 162/104 07/31/19 09:59 162/104 07/31/19 09:58 81 162/104 07/31/19 08:26 Room Air Intake and Output 07/31/19 08/01/19 19:00 07:00 Intake Total 950 ml Balance 950 ml Intake Oral 950 ml # Voids 4 2 # Bowel Movements 2 Laboratory Tests 08/01/19 05:42: White Blood Count 5.4, Red Blood Count 5.08, Hemoglobin 15.3, Hematocrit 44.8, Mean Corpuscular Volume 88, Mean Corpuscular Hemoglobin 30.1, Mean Corpuscular Hemoglobin Concent 34.1, Red Cell Distribution Width 11.9, Platelet Count 249, Mean Platelet Volume 7.7, Neutrophils (%) (Auto) 46.8, Lymphocytes (%) (Auto) 39.2, Monocytes (%) (Auto) 9.4, Eosinophils (%) (Auto) 2.8, Basophils (%) (Auto ) 1.8, Sodium Level 139, Potassium Level 3.6, Chloride Level 103, Carbon Dioxide Level 27, Anion Gap 9, Blood Urea Nitrogen 26H, Creatinine 1.7H, Estimat Glomerular Filtration Rate 49.9, Glucose Level 92, Calcium Level 9.1 Height (Feet): 5 Height (Inches): 10.00 Weight (Pounds): 248 Objective General Appearance: obese, NAD Lines, tubes and drains: peripheral HEENT: NCAT, anicteric, EOMi Respiratory/Chest: lungs clear, normal breath sounds, no respiratory distress, no accessory muscle use Cardiovascular/Chest: normal rate, regular rhythm, no gallop/murmur Abdomen: non tender, soft, no organomegaly, no mass Extremities: no edema Skin Exam: normal pigmentation MSK: no reproducible pain on anterior wall palpation Swetha Trinh M.D. Aug 01, 2019 08:05
[2019-08-01] MEDS ORDERED: HydrALAZINE 50mg tab ORAL SCH (09:00)
[2019-08-01] MEDS ORDERED: hydroCHLOROthiazide 12.5mg TAB ORAL SCH (09:00)
[2019-08-01] MEDS: hydroCHLOROthiazide 25mg cap ORAL SCH (09:25)
[2019-08-01] MEDS: Aspirin EC 81mg tab ORAL SCH (09:25)
[2019-08-01] MEDS: Carvedilol 25mg Tab ORAL SCH (09:26)
[2019-08-01] MEDS: Atorvastatin 20mg tab ORAL SCH (09:32)
[2019-08-01] MEDS: Heparin 5000 units/ml inj SUBQ SCH (09:37)
--- NOTE | 2019-08-01 10:59 | Nephrology Progress Note ---
Assessment/Plan Plan #hypertensive urgency #Elevated trop #proteinuria #poorly controlled HTN #HLD - check UTP/cr> negative - increase coreg 12.5mg daily - increase amlodipine to 10mg daily - continue hctz 25mg daily - increase hydralazine 50 tid - check renal Us with doppler - check kassie:renin ratio - cardiology eval - 2d echo - asa 81 daily - lipitor 40mg daily Impression: No sonographic evidence of renal artery stenosis Negative for hydronephrosis Posterior wall bladder wall thickening versus mass versus layering of debris. Consider cystoscopy for further evaluation Incidental finding left renal cyst. needs repeat US Subjective ROS Limited/Unobtainable: No Subjective Bp remains elevated increased coreg and amlodipine dose increase hydralazine 50 TID Renal US: Impression: No sonographic evidence of renal artery stenosis Negative for hydronephrosis Posterior wall bladder wall thickening versus mass versus layering of debris. Consider cystoscopy for further evaluation Incidental finding left renal cyst. Repeat US Objective Objective Last 24 Hour Vital Signs Date Time Temp Pulse Resp B/P (MAP) Pulse Ox O2 Delivery O2 Flow Rate FiO2 08/01/19 09:30 130/68 08/01/19 09:28 65 130/68 08/01/19 09:26 65 130/68 08/01/19 09:00 Room Air 08/01/19 08:00 97.3 65 18 130/68 (88) 95 08/01/19 06:07 98.5 88 18 152/98 (116) 94 08/01/19 05:08 169/105 08/01/19 04:00 98.5 88 18 169/109 (129) 94 08/01/19 04:00 56 08/01/19 00:00 97.3 80 18 175/111 (132) 99 07/31/19 23:37 58 07/31/19 21:00 Room Air 07/31/19 20:06 78 149/81 07/31/19 20:00 70 07/31/19 20:00 97.9 77 19 158/98 (118) 99 07/31/19 19:29 134/89 07/31/19 16:30 97.7 64 20 134/89 (104) 98 07/31/19 16:00 79 07/31/19 14:20 157/101 07/31/19 12:00 98.2 75 20 157/101 (119) 95 4/21/20 11:47 75 Intake and Output 07/31/19 08/01/19 19:00 07:00 Intake Total 950 ml Balance 950 ml Intake Oral 950 ml # Voids 4 2 # Bowel Movements 2 Laboratory Tests 08/01/19 05:42: White Blood Count 5.4, Red Blood Count 5.08, Hemoglobin 15.3, Hematocrit 44.8, Mean Corpuscular Volume 88, Mean Corpuscular Hemoglobin 30.1, Mean Corpuscular Hemoglobin Concent 34.1, Red Cell Distribution Width 11.9, Platelet Count 249, Mean Platelet Volume 7.7, Neutrophils (%) (Auto) 46.8, Lymphocytes (%) (Auto) 39.2, Monocytes (%) (Auto) 9.4, Eosinophils (%) (Auto) 2.8, Basophils (%) (Auto ) 1.8, Sodium Level 139, Potassium Level 3.6, Chloride Level 103, Carbon Dioxide Level 27, Anion Gap 9, Blood Urea Nitrogen 26H, Creatinine 1.7H, Estimat Glomerular Filtration Rate 49.9, Glucose Level 92, Calcium Level 9.1 Height (Feet): 5 Height (Inches): 10.00 Weight (Pounds): 248 Nena Celaya M.D. Aug 01, 2019 10:59
--- NOTE | 2019-08-01 11:44 | Cardiac Electrophysiology PN ---
Assessment/Plan Assessment/Plan 1. Sinus tachycardia with no evidence of atrial fibrillation. On Coreg to 25 mg b.i.d. EF 55% 2. Troponin leak and hx of prior stent placement. Likely due to renal failure and demand ischemia. No CP . Fu by Dr. Ferrari. On Aspirin, Coreg and Lipitor 3. Accelerated hypertension. On Coreg 25 b.i.d. HCTZ 25 and Norvasc 10 mg daily Increased Hydralazine to 100 bid 4. Hyperlipidemia, on Lipitor. 5. Renal failure, Cr 1.[address] Aguilar Subjective Subjective BP better after Hydralazine increased to 100 bid. Echo Nl EF 65%. No CP or SOB Objective Last 24 Hour Vital Signs Date Time Temp Pulse Resp B/P (MAP) Pulse Ox O2 Delivery O2 Flow Rate FiO2 08/01/19 09:30 130/68 08/01/19 09:28 65 130/68 08/01/19 09:26 65 130/68 08/01/19 09:00 Room Air 08/01/19 08:00 97.3 65 18 130/68 (88) 95 08/01/19 06:07 98.5 88 18 152/98 (116) 94 08/01/19 05:08 169/105 08/01/19 04:00 98.5 88 18 169/109 (129) 94 08/01/19 04:00 56 08/01/19 00:00 97.3 80 18 175/111 (132) 99 07/31/19 23:37 58 07/31/19 21:00 Room Air 07/31/19 20:06 78 149/81 07/31/19 20:00 70 07/31/19 20:00 97.9 77 19 158/98 (118) 99 07/31/19 19:29 134/89 07/31/19 16:30 97.7 64 20 134/89 (104) 98 07/31/19 16:00 79 07/31/19 14:20 157/101 07/31/19 12:00 98.2 75 20 157/101 (119) 95 07/31/19 11:47 75 Intake and Output 07/31/19 08/01/19 19:00 07:00 Intake Total 950 ml Balance 950 ml Intake Oral 950 ml # Voids 4 2 # Bowel Movements 2 Laboratory Tests Test 08/01/19 05:42 White Blood Count 5.4 K/UL (4.8-10.8) Red Blood Count 5.08 M/UL (4.70-6.10) Hemoglobin 15.3 G/DL (14.2-18.0) Hematocrit 44.8 % (42.0-52.0) Mean Corpuscular Volume 88 FL (80-99) Mean Corpuscular Hemoglobin 30.1 PG (27.0-31.0) Mean Corpuscular Hemoglobin Concent 34.1 G/DL (32.0-36.0) Red Cell Distribution Width 11.9 % (11.6-14.8) Platelet Count 249 K/UL (150-450) Mean Platelet Volume 7.7 FL (6.5-10.1) Neutrophils (%) (Auto) 46.8 % (45.0-75.0) Lymphocytes (%) (Auto) 39.2 % (20.0-45.0) Monocytes (%) (Auto) 9.4 % (1.0-10.0) Eosinophils (%) (Auto) 2.8 % (0.0-3.0) Basophils (%) (Auto) 1.8 % (0.0-2.0) Sodium Level 139 MMOL/L (136-145) Potassium Level 3.6 MMOL/L (3.5-5.1) Chloride Level 103 MMOL/L (98-107) Carbon Dioxide Level 27 MMOL/L (21-32) Anion Gap 9 mmol/L (5-15) Blood Urea Nitrogen 26 mg/dL (7-18) H Creatinine 1.7 MG/DL (0.55-1.30) H Estimat Glomerular Filtration Rate 49.9 mL/min (>60) Glucose Level 92 MG/DL (74-106) Calcium Level 9.1 MG/DL (8.5-10.1) Objective HEAD AND NECK: No JVD. LUNGS: Clear. CARDIOVASCULAR: Regular S1 and S2 with no gallop or murmur. ABDOMEN: Soft. EXTREMITIES: No pitting edema. Isidro Chisholm MD Aug 01, 2019 11:44
[2019-08-01 12:00] VITALS: BP 113/71
[2019-08-01] MEDS ORDERED: NORVASC10 MG ORAL (12:01)
[2019-08-01] MEDS ORDERED: APRESOLINE50 MG ORAL (12:02)
[2019-08-01] MEDS ORDERED: ASPIRIN EC81 MG ORAL (12:02)
[2019-08-01] MEDS ORDERED: DIURIL25 MG ORAL (12:02)
[2019-08-01] MEDS ORDERED: LIPITOR20 MG ORAL (12:02)
--- NOTE | 2019-08-01 12:10 | Discharge Summary ---
Discharge Summary Hospital Course Date of Admission Jul 29, 2019 at 02:19 Date of Discharge Admitting Diagnosis Hypertensive encephalopathy HPI Prashanth Garcia is a 63 year old male who was admitted on Jul 29, 2019 at 02 :19 for Hypertensive Encephalopathy Hospital Course 63 YO M with HTN, HLD ,atherosclerotic CAD s/p PCI with 2 stents (2018), CKD, medication non-compliance presenting with lightheadedness. Vitals signs in the ED significant for BP: 204/119 and UA suggestive or proteinuria. Patient was admitted for hypertensive urgency due to medication noncompliance. Patient was given amlodipine, Coreg, hydralazine. Cardiology consulted who stated no stress test at this time. Noted with Cr 1.4, 1.5, nephro consulted and this is liekly his baseline. Pt was restarted on low dose HCTZ. Renal US showed no renal artery stenosis, no hydronephrosis, posterior wall bladder wall thickening vs mass vs layering of debris. Repeat renal US with similar findings. Urology consulted, Dr. Champagne, instructed pt he will need o/p cystoscopy. Pt expressed he will f/u as no diagnosis has been established, and findings could be malignant which could lead to . Pt given instructions to f/u w/Dr. Champagne. Pt's bp stable and was d/c in stable condition. #Hypertensive Urgency #Medication non-compliance 2/2 cost #History of primary hypertension #HLD #CAD s/p PCI with 2 stents (2018) #Elevated Troponin #Tachycardia #?ASHISH on CKD #Chronic Kidney Disease #Hypertensive nephropathy #Abnormal Bladder US D/C planning >30 mins. Discharge Medications New Medications: Amlodipine Besylate (Norvasc) 10 Mg Tablet 10 MG ORAL DAILY for 30 Days, #30 TAB 3 Refills Aspirin Ec* (Aspirin Ec*) 81 Mg Tablet. 81 MG ORAL DAILY for 30 Days, #30 TAB 3 Refills Atorvastatin Calcium* (Lipitor*) 20 Mg Tablet 40 MG ORAL DAILY for 30 Days, #30 TAB 3 Refills Hydralazine HCl (Hydralazine HCl) 50 Mg Tablet 100 MG ORAL BID for 30 Days, #30 TAB 3 Refills Hydrochlorothiazide (Hydrochlorothiazide) 50 Mg Tablet 12.5 MG ORAL DAILY for 30 Days, #30 TAB 3 Refills Discharge Condition Upon Discharge: stable Discharge Vital Signs Last Vital Signs Date Time Temp Pulse Resp B/P (MAP) Pulse Ox O2 Delivery O2 Flow Rate FiO2 08/01/19 09:30 130/68 08/01/19 09:28 65 08/01/19 09:00 Room Air 08/01/19 08:00 97.3 18 95 07/29/19 03:30 98 Discharge Disposition Patient was discharged to home Swetha Trinh M.D. Aug 01, 2019 12:10
== END 2019-08-01 17:33 | disposition home or self-care (01) | DRG 305 ==
LOC: EDBD 00:56 → EMR 01:06 → 2E 02:19 → EDBEDREQ 02:34 → 2E 07-30 18:33
DX: I16.0 Hypertensive urgency (principal); I67.4 Hypertensive encephalopathy; N17.9 Acute kidney failure, unspecified; I24.9 Acute ischemic heart disease, unspecified; Z91.14 Patient's other noncompliance with medication regimen; I27.20 Pulmonary hypertension, unspecified; E78.5 Hyperlipidemia, unspecified; I25.10 Atherosclerotic heart disease of native coronary artery without angina pectoris; R93.41 Abnormal radiologic findings on diagnostic imaging of renal pelvis, ureter, or bladder; Z95.5 Presence of coronary angioplasty implant and graft; R74.8 Abnormal levels of other serum enzymes; R00.0 Tachycardia, unspecified; I12.9 Hypertensive chronic kidney disease with stage 1 through stage 4 chronic kidney disease, or unspecified chronic kidney disease; N18.9 Chronic kidney disease, unspecified
CPT/HCPCS: 36415; 70450; 71045; 76770; 80048; 80053; 80061; 80307; 81001; 82044; 82088; 82533; 82570; 83036; 83735; 83880; 84100; 84244; 84443; 84484; 85025; 93306; 96374; 96376; 99285